=== PATIENT | male | born 1965 | race Caucasian/White ===

== ENCOUNTER → 2021-09-07 17:21 | Outpatient (CLI) | payer BC, SELFPAY ==
[2021-09-07 18:40] LABS: Alanine Aminotransferase 36 U/L (12-78); Albumin Level 3.5 g/dl (3.5-5.0); Albumin/Globulin Ratio 1.3 (1.1-1.8); Alkaline Phosphatase 62 U/L (38-126); Anion Gap 10.5 mEq/L (5-15); Aspartate Amino Transferase 25 U/L (17-59); Bilirubin,Total 0.3 mg/dl (0.2-1.3); Blood Urea Nitrogen 15 mg/dl (9-20); Calcium 8.8 mg/dl (8.4-10.2); Carbon Dioxide 28 mmol/L (22.0-30.0); Chloride 105 mmol/L (98-107); Chol/HDL Ratio 3.9 (1-3.5); Cholesterol 148 mg/dl (140-200); Estimated Glomerular Filt Rate 70 ml/min (>60); GFR (African American) 84 ML/MIN (>60); Globulin 2.7 g/dL (1.3-3.2); Glucose 138 mg/dl (74-100); HDL Cholesterol 38 mg/dl (40-60); Potassium 4.5 mmoL/L (3.5-5.1); Sodium 139 mmol/L (136-145); Total Protein,Serum 6.2 g/dl (6.3-8.2); Triglycerides 142 mg/dl (30-150); VLDL Cholesterol 28 mg/dL (0-40)
[2021-09-07 18:43] LABS: Hemoglobin A1C 8.4 % (4.0-6.0)
[2021-09-07 19:11] LABS: Prostate Specific Ag Screen 0.4 ng/ml (0.0-4.0)
== END ==
PROVIDERS: Visit Provider Internal Medicine
DX: E11.22 Type 2 diabetes mellitus with diabetic chronic kidney disease (principal); N18.2 Chronic kidney disease, stage 2 (mild); I12.9 Hypertensive chronic kidney disease with stage 1 through stage 4 chronic kidney disease, or unspecified chronic kidney disease; E78.5 Hyperlipidemia, unspecified; N40.1 Benign prostatic hyperplasia with lower urinary tract symptoms; Z12.5 Encounter for screening for malignant neoplasm of prostate
CPT/HCPCS: 80053; 80061; 83036; G0103

== ENCOUNTER → 2021-11-08 08:19 | Outpatient (CLI) | payer BC, SELFPAY | PROVIDERS: PCP Internal Medicine; Visit Provider Nurse Practitioner | DX: U07.1 COVID-19 (principal) | CPT/HCPCS: C9803; U0003; U0005 ==

== ENCOUNTER 2021-12-25 03:18 | Emergency (ER) | payer BC, SELFPAY ==
[2021-12-25 03:20] VITALS: BP 135/90; PULSE 70; RESP 17; TEMP 36.8; O2SAT 98; BMI 39.5
--- NOTE | 2021-12-25 04:02 | HMH.EDEYEP ---
ED Disposition Clinical Impression: Anisocoria Disposition: Home, Self-Care Condition on Discharge: Good Instructions: DI for Eye Pain Additional Instructions: call today to vision center Referrals: Everton Jones [Primary Care Provider] - - Critical Care Critical Care Time: No Attestation: On 12/25/21, the high probability of a clinically significant, sudden or life threatening deterioration of the following system(s) required my full and direct attention, intervention and personal management. The time I documented below is in addition to time spent performing reported procedures but includes the following listed in this critical care notation. Medical Decision Making - Medical Records Medical records reviewed: Yes: I reviewed the patient's medical records. - Adrian Inquiry Pt receiving controlled substance: No Vital Signs: 12/25/21 03:20 Temperature 98.3 F Temperature Source Oral Pulse Rate [Right] 70 Respiratory Rate 17 Blood Pressure [Right Arm] 135/90 Blood Pressure Mean [Right Arm] 105 02 Sat by Pulse Oximetry 98 Oxygen Delivery Method Room Air - Lab Data Lab results reviewed: Yes: I reviewed the patient's lab results. Lab Results 12/25/21 04:17: WBC 5.7, RBC 5.32, Hgb 15.9, Hct 48.6, MCV 91.4, MCH 29.8, MCHC 32.6, RDW 12.9, Plt Count 256, MPV 8.0, Neut % (Auto) 57.1, Lymph % (Auto) 31.0, Calhoun % (Auto) 6.6, Eos % (Auto) 2.9, Baso % (Auto) 2.4 H, Neut # (Auto) 3.2, Lymph # (Auto) 1.8, Calhoun # (Auto) 0.4, Eos # (Auto) 0.2, Baso # (Auto) 0.1, ESR 5 12/25/21 04:17: Sodium 136, Potassium 4.2, Chloride 99, Carbon Dioxide 28, Anion Gap 13.2, BUN 19, Creatinine 1.20, Estimated Creat Clear 111, Estimated GFR 63, Est GFR ( Amer) 76, Glucose 276 H, Calcium 9.8, Total Bilirubin 0.4, AST 30, ALT 40, Alkaline Phosphatase 76, C-Reactive Protein 1.5, Total Protein 7.4, Albumin 4.5, Globulin 2.9, Albumin/Globulin Ratio 1.6, Procalcitonin 0.079 Result diagrams: 12/25/21 04:17 12/25/21 04:17 - CT Data CT Scan: Head, Other (orbit) Time Received: 06:[address] Reviewed: Yes: I have viewed the radiologist's interpretation Preliminary Findings: Normal/NAD Medical Decision Narrative: dilated pupil w/o specific etiology with jens lugoxam- call pcp and [facility] Eye Problem HPI - General Chief complaint: Eye Problems Stated complaint: Health Seeking;Left Eye Time Seen by Provider: 12/25/21 03:50 Mode of Arrival: Family Vehicle Source of Information: Patient Limitations: Physical Limitations Description of Symptoms (Recalled from ER Triage Doc. by RN): Pt was at work ([employer]) and noticed in a mirror that his left pupil was huge and 2x the size of my other . Pupils round, reactive, and R 2mm/ L 3mm. Pt denies any injury, trauma, vision changes or pain. Denies eye tearing. Vision exam reveals: R 20/70 & L 20/30 with glassess in use. Pt reports I always have worse vision in my right eye . - History of Present Illness HPI Narrative: noted to have dilated lt pupil w/o fever or rash and no trauma or new meds or otc meds and no visual loss or eye pain or leger or trauma MD chief complaint: other Onset (ago): hour(s) Onset description: unknown Duration: constant Location: left eye Eye Symptoms: other (dilated ) Place: home Mechanism: none Severity: moderate Associated symptoms: none Treatments Prior to Arrival: none - Related Data Home Medications Medication Instructions Recorded Confirmed Fenofibric Acid (Choline) 135 mg PO DAILY 12/25/21 12/25/21 [Fenofibric Acid] Glimepiride [Amaryl] 4 mg PO DAILY 12/25/21 12/25/21 Metformin HCl [Metformin 1000mg 1,000 mg PO BID 12/25/21 12/25/21 Tablets] Semaglutide [Rybelsus] 14 mg PO DAILY 12/25/21 12/25/21 atenoloL [Atenolol 25mg Tab] 25 mg PO DAILY 12/25/21 12/25/21 lisinopriL [Lisinopril] 10 mg PO DAILY 12/25/21 12/25/21 Allergies Allergy/AdvReac Type Severity Reaction Status Date / Time PCN (PENICILLIN) Allergy Intermediate I-HIV
--- NOTE | 2021-12-25 04:04 | CT_ITS ---
PROCEDURE INFORMATION: Exam: CT Head Without Contrast Exam date and time: 12/25/2021 4:04 AM Age: 56 years old Clinical indication: Other: Anisorcoria, left pupil dilated, no trauma, no visual changes; Additional info: Anisocoria, no trauma or vision changes TECHNIQUE: Imaging protocol: Computed tomography of the head without contrast. Radiation optimization: All CT scans at this facility use at least one of these dose optimization techniques: automated exposure control; mA and/or kV adjustment per patient size (includes targeted exams where dose is matched to clinical indication); or iterative reconstruction. COMPARISON: No relevant prior studies available. FINDINGS: Brain: Normal. No hemorrhage. Unremarkable white matter. No mass effect. Cerebral ventricles: No ventriculomegaly. Paranasal sinuses: Visualized sinuses are unremarkable. No fluid levels. Mastoid air cells: Visualized mastoid air cells are well aerated. Bones/joints: Unremarkable. No acute fracture. Soft tissues: Unremarkable. IMPRESSION: No acute intracranial abnormality.
--- NOTE | 2021-12-25 04:19 | CT_ITS ---
PROCEDURE INFORMATION: Exam: CT Orbits Without Contrast Exam date and time: 12/25/2021 4:19 AM Age: 56 years old Clinical indication: Other: Anisorcoria, left pupil dilated, no trauma or visual changes; Additional info: L eye pupil change TECHNIQUE: Imaging protocol: Computed tomography images of the orbits without contrast. Radiation optimization: All CT scans at this facility use at least one of these dose optimization techniques: automated exposure control; mA and/or kV adjustment per patient size (includes targeted exams where dose is matched to clinical indication); or iterative reconstruction. COMPARISON: CT HEAD/BRAIN WO CON 12/25/2021 4:21 AM FINDINGS: Orbital cavity: Orbits are normal. Globes are unremarkable. No inflammatory process. No structural abnormality. Paranasal sinuses: Normal. No air-fluid levels. Bones/joints: No acute fracture. Soft tissues: No significant facial soft tissue swelling. IMPRESSION: Unremarkable examination orbits without contrast.
[2021-12-25 04:29] LABS: Basophils # 0.1 K/mm3 (0-0.2); Basophils % 2.4 % (0.1-2.0); Eosinophils # 0.2 K/mm3 (0.0-0.4); Eosinophils % 2.9 % (0.1-12.0); Hematocrit 48.6 % (42.0-52.0); Hemoglobin 15.9 g/dL (14.1-18.0); Lymphocytes # 1.8 K/mm3 (0.7-4.5); Mean Corpuscular HGB Conc 32.6 g/dL (31.8-35.4); Mean Corpuscular Hemoglobin 29.8 pg (27.0-31.2); Mean Corpuscular Volume 91.4 fl (80-94); Monocytes # 0.4 K/mm3 (0.1-1.0); Monocytes % 6.6 % (1.7-9.3); Neutrophils # 3.2 K/mm3 (1.8-7.8); Neutrophils % 57.1 % (37.0-80.0); Platelet Count 256 K/mm3 (142-424); Red Blood Count 5.32 M/mm3 (4.60-6.20); Red Cell Distribution Width 12.9 % (11.5-17.5); White Blood Count 5.7 K/mm3 (4.8-10.8)
[2021-12-25 04:36] LABS: Alanine Aminotransferase 40 U/L (12-78); Albumin Level 4.5 g/dl (3.5-5.0); Albumin/Globulin Ratio 1.6 (1.1-1.8); Alkaline Phosphatase 76 U/L (38-126); Anion Gap 13.2 mEq/L (5-15); Aspartate Amino Transferase 30 U/L (17-59); Bilirubin,Total 0.4 mg/dl (0.2-1.3); Blood Urea Nitrogen 19 mg/dl (9-20); Calcium 9.8 mg/dl (8.4-10.2); Carbon Dioxide 28 mmol/L (22.0-30.0); Chloride 99 mmol/L (98-107); Creatinine Clearance Estimated 111 mL/min (50-200); Estimated Glomerular Filt Rate 63 ml/min (>60); GFR (African American) 76 ML/MIN (>60); Globulin 2.9 g/dL (1.3-3.2); Glucose 276 mg/dl (74-100); Potassium 4.2 mmoL/L (3.5-5.1); Sodium 136 mmol/L (136-145); Total Protein,Serum 7.4 g/dl (6.3-8.2)
[2021-12-25 04:41] LABS: C-Reactive Protein 1.5 mg/L (0-4)
[2021-12-25 04:55] LABS: Procalcitonin 0.079 ng/mL (0.0-2.0)
[2021-12-25 05:08] LABS: Erythrocyte Sedimentation Rate 5 mm/hr (0-20)
[2021-12-25 06:01] VITALS: BP 140/84; PULSE 80; RESP 18; TEMP 36.8; O2SAT 97
== END 2021-12-25 06:10 | disposition home or self-care (01) ==
PROVIDERS: Emergency Provider Emergency Medicine; PCP Internal Medicine
DX: H57.02 Anisocoria (principal)
CPT/HCPCS: 70450; 70480; 80053; 84145; 85025; 85651; 86140; 99282

== ENCOUNTER → 2022-01-05 09:51 | Outpatient (CLI) | payer BC, SELFPAY ==
--- NOTE | 2022-01-05 09:55 | CA_ITS ---
FINAL REPORT TECHNIQUE: Color Doppler, duplex Doppler and ward scale sonography of the bilateral neck arterial vasculature was performed. Velocities were measured in the carotid arteries. Stenosis evaluation based on the validated velocity criteria. CLINICAL HISTORY: TIA,LT ANISOCORIA FINDINGS: The peak systolic velocity of the right common carotid artery is 128 cm/s. The peak systolic velocity of the right internal carotid artery is 108 cm/s and end diastolic velocity 23 cm/s. The ICA/CCA ratio is 1.03. A small amount of plaque is present. The right external carotid artery is patent. The right vertebral artery is patent with antegrade flow. The peak systolic velocity of the left common carotid artery is 92 cm/s. The peak systolic velocity of the left internal carotid artery is 98 cm/s and end diastolic velocity 22 cm/s. The ICA/CCA ratio is 1.10. A small amount of plaque is present. The left external carotid artery is patent.The left vertebral artery is patent with antegrade flow. IMPRESSION: Less than 50% bilateral carotid stenoses. Bilateral patent vertebral arteries with antegrade flow. If indicated, CTA or MRA could further evaluate. Reviewed, Interpreted and Dictated by Josué Murphy III, MD Transcribed by Charity Hankins Authenticated by Josué Murphy III, MD on 01/05/2022 11:09:[address] [facility]
== END ==
PROVIDERS: PCP Internal Medicine; Visit Provider Internal Medicine
DX: G45.9 Transient cerebral ischemic attack, unspecified (principal); H57.02 Anisocoria
CPT/HCPCS: 93880

== ENCOUNTER → 2022-01-12 08:29 | Outpatient (CLI) | payer BC, SELFPAY | PROVIDERS: PCP Internal Medicine; Visit Provider Nurse Practitioner | DX: Z20.822 Contact with and (suspected) exposure to COVID-19 (principal) | CPT/HCPCS: C9803; U0003; U0005 ==

== ENCOUNTER → 2022-03-08 12:38 | Outpatient (CLI) | payer BC, SELFPAY ==
[2022-03-08 15:28] LABS: Alanine Aminotransferase 29 U/L (12-78); Albumin Level 4.2 g/dl (3.5-5.0); Albumin/Globulin Ratio 1.7 (1.1-1.8); Alkaline Phosphatase 49 U/L (38-126); Anion Gap 11.3 mEq/L (5-15); Aspartate Amino Transferase 24 U/L (17-59); Bilirubin,Total 0.6 mg/dl (0.2-1.3); Blood Urea Nitrogen 19 mg/dl (9-20); Calcium 9.3 mg/dl (8.4-10.2); Carbon Dioxide 31 mmol/L (22.0-30.0); Chloride 101 mmol/L (98-107); Chol/HDL Ratio 4.6 (1-3.5); Cholesterol 146 mg/dl (140-200); Estimated Glomerular Filt Rate 58 ml/min (>60); GFR (African American) 70 ML/MIN (>60); Globulin 2.5 g/dL (1.3-3.2); Glucose 103 mg/dl (74-100); HDL Cholesterol 32 mg/dl (40-60); Potassium 4.3 mmoL/L (3.5-5.1); Sodium 139 mmol/L (136-145); Total Protein,Serum 6.7 g/dl (6.3-8.2); Triglycerides 247 mg/dl (30-150); VLDL Cholesterol 49 mg/dL (0-40)
[2022-03-08 15:34] LABS: Creatinine,Urine Random 190 mg/dL (Not Estab.)
[2022-03-08 15:37] LABS: Microalbumin/Creatinine Ratio 8.3
[2022-03-08 15:39] LABS: Direct LDL Cholesterol 72.43 mg/dL (100-129)
[2022-03-08 16:03] LABS: Hemoglobin A1C 8.8 % (4.0-6.0)
== END ==
PROVIDERS: PCP Internal Medicine; Visit Provider Internal Medicine
DX: E11.22 Type 2 diabetes mellitus with diabetic chronic kidney disease (principal); N18.2 Chronic kidney disease, stage 2 (mild); E78.5 Hyperlipidemia, unspecified; I10 Essential (primary) hypertension; E66.01 Morbid (severe) obesity due to excess calories; Z79.84 Long term (current) use of oral hypoglycemic drugs
CPT/HCPCS: 80053; 80061; 82043; 82570; 83036

== ENCOUNTER → 2022-09-13 12:52 | Outpatient (CLI) | payer BC, SELFPAY ==
[2022-09-13 17:00] LABS: Basophils # 0.1 K/mm3 (0-0.2); Basophils % 2.1 % (0.1-2.0); Eosinophils # 0.2 K/mm3 (0.0-0.4); Eosinophils % 2.7 % (0.1-12.0); Hematocrit 47.6 % (42.0-52.0); Hemoglobin 15.4 g/dL (14.1-18.0); Lymphocytes # 1.3 K/mm3 (0.7-4.5); Lymphocytes % 23.7 % (10-50); Mean Corpuscular HGB Conc 32.4 g/dL (31.8-35.4); Mean Corpuscular Hemoglobin 29.7 pg (27.0-31.2); Mean Corpuscular Volume 91.7 fl (80-94); Mean Platelet Volume 8.8 fl (7.4-10.4); Monocytes # 0.4 K/mm3 (0.1-1.0); Monocytes % 7.5 % (1.7-9.3); Neutrophils # 3.5 K/mm3 (1.8-7.8); Platelet Count 271 K/mm3 (142-424); Red Blood Count 5.19 M/mm3 (4.60-6.20); Red Cell Distribution Width 12.6 % (11.5-17.5); White Blood Count 5.5 K/mm3 (4.8-10.8)
[2022-09-13 18:35] LABS: Alanine Aminotransferase 26 U/L (12-78); Albumin Level 4.1 g/dl (3.5-5.0); Albumin/Globulin Ratio 1.5 (1.1-1.8); Alkaline Phosphatase 90 U/L (38-126); Anion Gap 17.4 mEq/L (5-15); Aspartate Amino Transferase 22 U/L (17-59); Bilirubin,Total 0.3 mg/dl (0.2-1.3); Blood Urea Nitrogen 25 mg/dl (9-20); Calcium 9.1 mg/dl (8.4-10.2); Carbon Dioxide 28 mmol/L (22.0-30.0); Chloride 99 mmol/L (98-107); Chol/HDL Ratio 4.5 (1-3.5); Cholesterol 140 mg/dl (140-200); Estimated Glomerular Filt Rate 53 ml/min (>60); GFR (African American) 64 ML/MIN (>60); Globulin 2.7 g/dL (1.3-3.2); Glucose 204 mg/dl (74-100); HDL Cholesterol 31 mg/dl (40-60); Potassium 4.4 mmoL/L (3.5-5.1); Sodium 140 mmol/L (136-145); Total Protein,Serum 6.8 g/dl (6.3-8.2); Triglycerides 335 mg/dl (30-150); VLDL Cholesterol 67 mg/dL (0-40)
[2022-09-13 18:45] LABS: Direct LDL Cholesterol 61.24 mg/dL (100-129)
[2022-09-13 19:02] LABS: Prostate Specific Ag Screen 0.3 ng/ml (0.0-4.0)
[2022-09-13 20:02] LABS: Hemoglobin A1C 8.8 % (4.0-6.0)
== END ==
PROVIDERS: PCP Internal Medicine; Visit Provider Internal Medicine
DX: E11.22 Type 2 diabetes mellitus with diabetic chronic kidney disease (principal); N18.9 Chronic kidney disease, unspecified; I10 Essential (primary) hypertension; E78.5 Hyperlipidemia, unspecified; Z79.84 Long term (current) use of oral hypoglycemic drugs; Z12.5 Encounter for screening for malignant neoplasm of prostate
CPT/HCPCS: 80053; 80061; 83036; 85025; G0103

== ENCOUNTER → 2023-03-14 12:20 | Outpatient (CLI) | payer BC, SELFPAY ==
[2023-03-14 16:01] LABS: Alanine Aminotransferase 28 U/L (12-78); Albumin Level 4.4 g/dl (3.5-5.0); Albumin/Globulin Ratio 1.6 (1.1-1.8); Alkaline Phosphatase 71 U/L (38-126); Anion Gap 14.3 mEq/L (5-15); Aspartate Amino Transferase 24 U/L (17-59); Bilirubin,Total 0.6 mg/dl (0.2-1.3); Blood Urea Nitrogen 20 mg/dl (9-20); Carbon Dioxide 28 mmol/L (22.0-30.0); Chloride 100 mmol/L (98-107); Chol/HDL Ratio 4.4 (1-3.5); Cholesterol 137 mg/dl (140-200); Estimated Glomerular Filt Rate 57 ml/min (>60); GFR (African American) 69 ML/MIN (>60); Globulin 2.8 g/dL (1.3-3.2); Glucose 153 mg/dl (74-100); HDL Cholesterol 31 mg/dl (40-60); Potassium 4.3 mmoL/L (3.5-5.1); Sodium 138 mmol/L (136-145); Total Protein,Serum 7.2 g/dl (6.3-8.2); Triglycerides 360 mg/dl (30-150); VLDL Cholesterol 72 mg/dL (0-40)
[2023-03-14 16:11] LABS: Direct LDL Cholesterol 60.25 mg/dL (100-129)
[2023-03-15 13:23] LABS: Hemoglobin A1C 8.9 % (4.0-6.0)
== END ==
PROVIDERS: PCP Internal Medicine; Visit Provider Internal Medicine
DX: E11.22 Type 2 diabetes mellitus with diabetic chronic kidney disease (principal); N18.2 Chronic kidney disease, stage 2 (mild); E78.5 Hyperlipidemia, unspecified; Z86.73 Personal history of transient ischemic attack (TIA), and cerebral infarction without residual deficits
CPT/HCPCS: 80053; 80061; 83036

== ENCOUNTER 2023-06-07 11:37 | Emergency (ER) | payer BC, SELFPAY ==
[2023-06-07 11:37] VITALS: BP 150/76; PULSE 76; RESP 18; TEMP 37.1; O2SAT 100; BMI 40.3
--- NOTE | 2023-06-07 11:57 | EXP.UTC ---
Discharge Plan Disposition Patient Disposition: Home, Self-Care Condition: Good Prescriptions Prescriptions: New azithromycin [Zithromax] 250 mg tablet 250 mg PO UD DOSE PK Qty: 6 0RF Rx Instructions: Take two (2) tablets today, then one (1) tablet days #2 thru #5 benzonatate [benzonatate] 100 mg capsule 100 mg PO TIDP PRN (Reason: Cough) Qty: 30 0RF methylprednisolone 4 mg Tablets,Dose Pack 4 mg PO DIRECTED Qty: 21 0RF No Action atenolol 25 MG tablet 25 mg PO DAILY metformin 1,000 MG tablet 1,000 mg PO BID lisinopril 10 MG tablet 10 mg PO DAILY glimepiride 4 MG tablet 4 mg PO DAILY fenofibric acid (choline) 135 MG capsule,delayed release(DR/EC) 135 mg PO DAILY semaglutide 14 MG tablet 14 mg PO DAILY Referrals Follow up/Referrals: Everton Jones MD [Primary Care Provider] - See instructions Activity Restrictions/Add. Instructions Additional Instructions/Restrictions: Drink plenty of fluids. Take tylenol or ibuprofen for pain or fever. Take the medications as directed. Follow up with your regular doctor. GO TO THE ER FOR ANY WORSENING SYMPTOMS Clinical Impressions Clinical Impression: Sinusitis, Acute viral syndrome Instructions Patient Instructions: Sinusitis, DI for Sinusitis, Coronavirus Disease 2019, Preventing the Spread of Coronavirus Discharge Instructions Discharge ED Provider: Rasta Parker [facility] General Stated complaint: Covid test, congestion, drainage Time Seen by Provider: 06/07/23 11:51 History of Present Illness Provider Complaint: He reports that for the past 3 days he has had sinus congestion, chills, body aches and malaise. He was exposed to covid-19 last week. Related Data Home Medications Medication Instructions Recorded Confirmed atenolol 25 mg tablet 25 mg PO DAILY cardiac 12/25/21 12/25/21 fenofibric acid (choline) 135 mg 135 mg PO DAILY . 12/25/21 12/25/21 capsule,delayed release glimepiride 4 mg tablet 4 mg PO DAILY Diabetes 12/25/21 12/25/21 lisinopril 10 mg tablet 10 mg PO DAILY htn 12/25/21 12/25/21 metformin 1,000 mg tablet 1,000 mg PO BID Diabetes 12/25/21 12/25/21 semaglutide 14 mg tablet 14 mg PO DAILY Diabetes 12/25/21 12/25/21 Previous Rx's Medication Instructions Recorded azithromycin 250 mg tablet 250 mg PO UD DOSE PK #6 tabs 06/07/23 (Zithromax) benzonatate 100 mg capsule 100 mg PO TIDP PRN Cough #30 caps 06/07/23 methylprednisolone 4 mg tablets in 4 mg PO DIRECTED #21 tabs 06/07/23 a dose pack Allergies Allergy/AdvReac Type Severity Reaction Status Date / Time PCN (PENICILLIN) Allergy Intermediate I-HIVES Uncoded 11/06/17 14:23 [facility] Disclaimer: The information contained in this section may have been updated after the patient was seen, as this information can be updated by other users. Social History Smoking Status: Former smoker alcohol intake: never current occupational status: retired Travel in the last 8 weeks: None ROS Obtained: Yes All systems reviewed & no additional complaints except as documented Constitutional Constitutional: Reports poor appetite Eyes Eyes: Reports system reviewed and no additional complaints, except as documented ENT Ears, Nose, Mouth, and Throat: Reports as per HPI Cardiovascular Cardiovascular: Reports system reviewed and no additional complaints, except as documented and Denies chest pain Respiratory Respiratory: Denies shortness of breath, Reports chest congestion, Reports cough, Denies stridor and Denies wheezing Gastrointestinal Gastrointestingal: Reports system reviewed and no additional complaints, except as documented; Denies abdominal pain, diarrhea or vomiting Musculoskeletal Musculoskeletal: Reports system reviewed and no additional complaints, except as documented and Denies arthralgias Integumentary/Breasts Skin/Breast: Reports system reviewed
[2023-06-07 12:45] VITALS: BP 150/76; PULSE 76; RESP 18; TEMP 37.1; O2SAT 100
== END 2023-06-07 12:46 | disposition home or self-care (01) ==
PROVIDERS: Emergency Provider Nurse Practitioner Family; PCP Internal Medicine
DX: U07.1 COVID-19 (principal); Z87.891 Personal history of nicotine dependence; R53.81 Other malaise
CPT/HCPCS: 99204; 99212; G0463

== ENCOUNTER → 2023-09-19 13:21 | Outpatient (CLI) | payer BC, SELFPAY ==
[2023-09-19 14:56] LABS: Basophils # 0.1 K/mm3 (0-0.2); Eosinophils # 0.1 K/mm3 (0.0-0.4); Eosinophils % 2.6 % (0.1-12.0); Hematocrit 52.8 % (42.0-52.0); Lymphocytes # 1.5 K/mm3 (0.7-4.5); Lymphocytes % 28.6 % (10-50); Mean Corpuscular HGB Conc 34.4 g/dL (31.8-35.4); Mean Corpuscular Hemoglobin 31.5 pg (27.0-31.2); Mean Corpuscular Volume 91.8 fl (80-94); Mean Platelet Volume 8.5 fl (7.4-10.4); Monocytes # 0.4 K/mm3 (0.1-1.0); Monocytes % 8.4 % (1.7-9.3); Neutrophils % 58.4 % (37.0-80.0); Platelet Count 241 K/mm3 (142-424); Red Blood Count 5.75 M/mm3 (4.60-6.20); Red Cell Distribution Width 12.8 % (11.5-17.5); White Blood Count 5.1 K/mm3 (4.8-10.8)
[2023-09-19 15:55] LABS: Alanine Aminotransferase 36 U/L (12-78); Albumin Level 4.6 g/dl (3.5-5.0); Albumin/Globulin Ratio 1.5 (1.1-1.8); Alkaline Phosphatase 62 U/L (38-126); Anion Gap 17.3 mEq/L (5-15); Aspartate Amino Transferase 28 U/L (17-59); Bilirubin,Total 0.5 mg/dl (0.2-1.3); Blood Urea Nitrogen 25 mg/dl (9-20); Calcium 9.5 mg/dl (8.4-10.2); Carbon Dioxide 25 mmol/L (22.0-30.0); Chloride 101 mmol/L (98-107); Chol/HDL Ratio 5.4 (1-3.5); Cholesterol 163 mg/dl (140-200); Estimated Glomerular Filt Rate 52 ml/min (>60); GFR (African American) 63 ML/MIN (>60); Glucose 135 mg/dl (74-100); HDL Cholesterol 30 mg/dl (40-60); Potassium 4.3 mmoL/L (3.5-5.1); Sodium 139 mmol/L (136-145); Total Protein,Serum 7.6 g/dl (6.3-8.2); Triglycerides 297 mg/dl (30-150); VLDL Cholesterol 59 mg/dL (0-40)
[2023-09-19 16:06] LABS: Direct LDL Cholesterol 87.11 mg/dL (100-129)
[2023-09-19 16:24] LABS: Prostate Specific Ag Screen 0.4 ng/ml (0.0-4.0)
[2023-09-19 16:57] LABS: Hemoglobin A1C 7.8 % (4.0-6.0)
[2023-09-19 18:21] LABS: Creatinine,Urine Random 84 mg/dL (Not Estab.); Microalbumin < 6.000 mg/L (0-16.7)
== END ==
PROVIDERS: PCP Internal Medicine; Visit Provider Internal Medicine
DX: E11.22 Type 2 diabetes mellitus with diabetic chronic kidney disease (principal); E78.5 Hyperlipidemia, unspecified; I10 Essential (primary) hypertension; N18.2 Chronic kidney disease, stage 2 (mild); E66.01 Morbid (severe) obesity due to excess calories; Z12.5 Encounter for screening for malignant neoplasm of prostate
CPT/HCPCS: 80053; 80061; 82043; 82570; 83036; 85025; G0103

== ENCOUNTER 2024-03-26 16:53 | Outpatient (CLI) | payer BC, SELFPAY ==
[2024-03-26 21:35] LABS: Chloride 103 mmol/L (98-107)
[2024-03-26 21:36] LABS: Potassium 4.4 mmoL/L (3.5-5.1); Sodium 138 mmol/L (136-145)
[2024-03-26 21:38] LABS: Alanine Aminotransferase 32 U/L (12-78); Alkaline Phosphatase 102 U/L (38-126); Anion Gap 15.4 mEq/L (5-15); Aspartate Amino Transferase 28 U/L (17-59); Bilirubin,Total 0.6 mg/dl (0.2-1.3); Blood Urea Nitrogen 25 mg/dl (9-20); Carbon Dioxide 24 mmol/L (22.0-30.0); Cholesterol 172 mg/dl (140-200); Estimated Glomerular Filt Rate 63 ml/min (>60); GFR (African American) 76 ML/MIN (>60)
[2024-03-26 21:39] LABS: Albumin Level 4.2 g/dl (3.5-5.0); Albumin/Globulin Ratio 1.5 (1.1-1.8); Calcium 9.6 mg/dl (8.4-10.2); Chol/HDL Ratio 5.4 (1-3.5); Globulin 2.8 g/dL (1.3-3.2); Glucose 146 mg/dl (74-100); HDL Cholesterol 32 mg/dl (40-60); Triglycerides 450 mg/dl (30-150)
[2024-03-26 21:50] LABS: Direct LDL Cholesterol 74.76 mg/dL (100-129)
[2024-03-26 22:35] LABS: Hemoglobin A1C 8.2 % (4.0-6.0)
== END 2024-03-26 23:59 | disposition home or self-care (01) ==
PROVIDERS: PCP Internal Medicine; Visit Provider Internal Medicine
DX: E11.22 Type 2 diabetes mellitus with diabetic chronic kidney disease (principal); N18.2 Chronic kidney disease, stage 2 (mild); E78.5 Hyperlipidemia, unspecified; Z87.891 Personal history of nicotine dependence; I12.9 Hypertensive chronic kidney disease with stage 1 through stage 4 chronic kidney disease, or unspecified chronic kidney disease
CPT/HCPCS: 80053; 80061; 83036

== ENCOUNTER 2024-06-25 09:15 | Outpatient (CLI) | payer BC, SELFPAY ==
[2024-06-25 17:46] LABS: Hemoglobin A1C 7.8 % (4.0-6.0)
[2024-06-25 19:01] LABS: Chol/HDL Ratio 4.8 (1-3.5); Cholesterol 164 mg/dl (140-200); HDL Cholesterol 34 mg/dl (40-60); Triglycerides 267 mg/dl (30-150); VLDL Cholesterol 53 mg/dL (0-40)
[2024-06-25 19:12] LABS: Direct LDL Cholesterol 80.09 mg/dL (100-129)
== END 2024-06-25 23:59 | disposition home or self-care (01) ==
LOC: LAB.DROPOF 06-26 09:15
PROVIDERS: PCP Internal Medicine; Visit Provider Internal Medicine
DX: E78.5 Hyperlipidemia, unspecified (principal); E11.9 Type 2 diabetes mellitus without complications; Z79.84 Long term (current) use of oral hypoglycemic drugs; Z79.85 Long-term (current) use of injectable non-insulin antidiabetic drugs
CPT/HCPCS: 80061; 83036

== ENCOUNTER 2024-09-24 14:43 | Outpatient (CLI) | payer BC, SELFPAY ==
[2024-09-24 14:39] LABS: Basophils # 0.1 K/mm3 (0-0.2); Basophils % 2.5 % (0.1-2.0); Eosinophils # 0.1 K/mm3 (0.0-0.4); Eosinophils % 1.8 % (0.1-12.0); Hematocrit 53.5 % (42.0-52.0); Lymphocytes % 22.2 % (10-50); Mean Corpuscular HGB Conc 33.6 g/dL (31.8-35.4); Mean Corpuscular Hemoglobin 29.6 pg (27.0-31.2); Mean Platelet Volume 8.3 fl (7.4-10.4); Monocytes # 0.3 K/mm3 (0.1-1.0); Monocytes % 7.7 % (1.7-9.3); Neutrophils # 2.8 K/mm3 (1.8-7.8); Neutrophils % 65.9 % (37.0-80.0); Platelet Count 226 K/mm3 (142-424); Red Blood Count 6.07 M/mm3 (4.60-6.20); White Blood Count 4.3 K/mm3 (4.8-10.8)
[2024-09-24 15:01] LABS: Alanine Aminotransferase 33 U/L (12-78); Albumin Level 4.7 g/dl (3.5-5.0); Albumin/Globulin Ratio 1.8 (1.1-1.8); Alkaline Phosphatase 59 U/L (38-126); Anion Gap 13.5 mEq/L (5-15); Aspartate Amino Transferase 30 U/L (17-59); Bilirubin,Total 0.7 mg/dl (0.2-1.3); Blood Urea Nitrogen 17 mg/dl (9-20); Calcium 9.4 mg/dl (8.4-10.2); Carbon Dioxide 26 mmol/L (22.0-30.0); Chloride 102 mmol/L (98-107); Chol/HDL Ratio 4.9 (1-3.5); Cholesterol 172 mg/dl (140-200); Estimated Glomerular Filt Rate 62 ml/min (>60); GFR (African American) 76 ML/MIN (>60); Globulin 2.6 g/dL (1.3-3.2); Glucose 114 mg/dl (74-100); HDL Cholesterol 35 mg/dl (40-60); Potassium 4.5 mmoL/L (3.5-5.1); Sodium 137 mmol/L (136-145); Total Protein,Serum 7.3 g/dl (6.3-8.2); Triglycerides 255 mg/dl (30-150); VLDL Cholesterol 51 mg/dL (0-40)
[2024-09-24 15:12] LABS: Direct LDL Cholesterol 99.01 mg/dL (100-129)
[2024-09-24 15:26] LABS: Hemoglobin A1C 7.6 % (4.0-6.0)
[2024-09-24 15:34] LABS: Prostate Specific Ag Screen 0.5 ng/ml (0.0-4.0)
[2024-09-24 17:09] LABS: Creatinine,Urine Random 87 mg/dL (Not Estab.)
[2024-09-24 17:22] LABS: Microalbumin < 6.000 mg/L (0-16.7)
== END 2024-09-24 23:59 | disposition home or self-care (01) ==
LOC: LAB.DROPOF 14:43
PROVIDERS: PCP Internal Medicine; Visit Provider Internal Medicine
DX: I10 Essential (primary) hypertension (principal); E11.59 Type 2 diabetes mellitus with other circulatory complications; E78.5 Hyperlipidemia, unspecified; Z12.5 Encounter for screening for malignant neoplasm of prostate; I77.9 Disorder of arteries and arterioles, unspecified; E66.01 Morbid (severe) obesity due to excess calories; K21.9 Gastro-esophageal reflux disease without esophagitis; Z68.38 Body mass index [BMI] 38.0-38.9, adult
CPT/HCPCS: 80053; 80061; 82043; 82570; 83036; 85025; G0103

== ENCOUNTER 2024-10-31 13:52 | Emergency (ER) | payer BC, SELFPAY ==
[2024-10-31 14:51] VITALS: BP 154/93; PULSE 74; RESP 18; TEMP 36.9; O2SAT 98; BMI 17.9
--- NOTE | 2024-10-31 14:52 | ED_ITS ---
Discharge Plan Disposition Patient Disposition: Home, Self-Care Condition: Good Prescriptions Prescriptions: New cephalexin 500 mg capsule 500 mg PO QID 7 Days Qty: 28 0RF No Action aspirin 81 mg tablet,delayed release (DR/EC) 81 mg PO DAILY icosapent ethyl [Vascepa] 1 gram capsule 2 g PO BID Qty: 360 1RF atenolol 25 mg tablet See Rx Instructions .ROUTE .COMPLEX Qty: 90 1RF Dose Instruction: TAKE ONE TABLET BY MOUTH EVERY DAY Rx Instructions: TAKE ONE TABLET BY MOUTH EVERY DAY fenofibric acid (choline) 135 mg capsule,delayed release(DR/EC) See Rx Instructions .ROUTE .COMPLEX Qty: 90 1RF Dose Instruction: TAKE 1 CAPSULE ONCE DAILY Rx Instructions: TAKE 1 CAPSULE ONCE DAILY clopidogrel 75 mg tablet See Rx Instructions .ROUTE .COMPLEX Qty: 90 1RF Dose Instruction: TAKE 1 TABLET DAILY Rx Instructions: TAKE 1 TABLET DAILY glimepiride 4 mg tablet See Rx Instructions .ROUTE .COMPLEX Qty: 180 1RF Dose Instruction: TAKE ONE TABLET BY MOUTH TWICE A DAY Rx Instructions: TAKE ONE TABLET BY MOUTH TWICE A DAY losartan 100 mg tablet See Rx Instructions .ROUTE .COMPLEX Qty: 90 1RF Dose Instruction: TAKE ONE TABLET BY MOUTH EVERY DAY Rx Instructions: TAKE ONE TABLET BY MOUTH EVERY DAY metformin 500 mg tablet See Rx Instructions .ROUTE .COMPLEX Qty: 360 1RF Dose Instruction: TAKE TWO TABLETS BY MOUTH TWICE A DAY WITH FOOD Rx Instructions: TAKE TWO TABLETS BY MOUTH TWICE A DAY WITH FOOD (DME) lancets [Accu-Chek Softclix Lancets] Misc See Rx Instructions .ROUTE .COMPLEX Qty: 100 5RF Dose Instruction: USE TO TEST BLOOD SUGAR ONCE DAILY DIRECTED Rx Instructions: USE TO TEST BLOOD SUGAR ONCE DAILY DIRECTED (DME) Accu-Chek Suzanne Plus test strp Strip See Rx Instructions .ROUTE .COMPLEX Qty: 100 2RF Dose Instruction: USE TO CHECK FASTING BLOOD GLUCOSE EVERY MORNING BEFORE BREAKFAST Rx Instructions: USE TO CHECK FASTING BLOOD GLUCOSE EVERY MORNING BEFORE BREAKFAST (DME) lancets [Accu-Chek Softclix Lancets] Misc See Rx Instructions .Route Qty: 200 1RF Rx Instructions: As directed. check sugar daily semaglutide 14 mg tablet 14 mg PO DAILY Qty: 90 1RF dapagliflozin propanediol 10 mg tablet See Rx Instructions .ROUTE .COMPLEX Qty: 90 1RF Dose Instruction: TAKE ONE TABLET BY MOUTH EVERY DAY Rx Instructions: TAKE ONE TABLET BY MOUTH EVERY DAY Referrals Follow up/Referrals: Everton Jones MD [Primary Care Provider] - See instructions Activity Restrictions/Add. Instructions Additional Instructions/Restrictions: Keep the wound clean and dry. Watch the wound for signs of infection, such as redness, swelling, drainage, fever. etc. Take tylenol or ibuprofen for pain. Follow up with your regular doctor. GO TO THE ER FOR ANY WORSENING SYMPTOMS OR CONCERNS. Clinical Impressions Clinical Impression: Laceration of right index finger, Need for Tdap vaccination Instructions Patient Instructions: DI for Laceration Repair-Skin Glue Print Language Print Language: Occitan Discharge ED Provider: Rasta Parker [facility] General Stated complaint: AO-1200 hours, laceration to R index Mode of Arrival: Ambulatory Source of Information: Patient Time Seen by Provider: 10/31/24 14:52 Description of Symptoms (Recalled from Triage Doc. by RN): CUT ON FINGER HEENT Symptoms (Recalled from RN notes): No Resp Symptoms (Recalled from RN notes): No Skin Symptoms (Recalled from RN notes): Yes MS Symptoms (Recalled from RN notes): No Functional Status (Recalled from RN notes): WNL Related Data Home Medications ?Medication ?Instructions ?Recorded ?Confirmed aspirin 81 mg tablet,delayed 81 mg PO DAILY 06/25/24 09/24/24 release Previous Rx's ?Medication ?Instructions ?Recorded atenolol 25 mg tablet See Rx Instructions .Route 06/24/24 .COMPLEX #90 tabs fenofibric acid (choline) 135 mg See Rx Instructions .Route 06/25/24 capsule,delayed release .COMPLEX #90 caps icosapent ethyl 1 gram capsule 2 g (2 x 1 gram) PO BID #360 caps 06/25/24 (Vascepa) clopidogrel 75 mg tablet See Rx Instructions .Route 07/10/24 .COMPLEX #90 tabs glimepiride 4 mg tablet See Rx Instructions .Route 07/16/24 .COMPLEX #180 tabs losartan 100 mg tablet See Rx Instructions .Route 07/25/24 .COMPLEX #90 tabs metformin 500 mg tablet See Rx Instructions .Route 08/01/24 .COMPLEX #360 tabs blood sugar diagnostic (Accu-Chek #100 strips 09/05/24 Suzanne Plus test strips) lancets (Accu-Chek Softclix #100 ea 09/05/24 Lancets) lancets (Accu-Chek Softclix #200 ea 09/05/24 Lancets) semaglutide 14 mg tablet 14 mg PO DAILY Diabetes #90 tabs 10/29/24 dapagliflozin propanediol 10 mg See Rx Instructions .Route 10/30/24 tablet .COMPLEX #90 tabs cephalexin 500 mg capsule 500 mg PO QID 7 days #28 caps 10/31/24 Allergies Allergy/AdvReac Type Severity Reaction Status Date / Time PCN (PENICILLIN) AdvReac Intermediate I-HIVES Uncoded 09/24/24 10:18 Worker's Comp Is this a Worker's Comp case?: No [facility] Disclaimer: The information contained in this section may have been updated after the patient was seen, as this information can be updated by other users. Social History Smoking Status: Former smoker alcohol intake: never current occupational status: retired Travel in the last 8 weeks: None Have you lived/traveled outside [place] in past 30 days?: No Contact w/someone who lives/traveled outside [place] past 30 days?: No Exposure to someone with infectious disease in past 14 days?: No Do you have a fever (greater than 100.4 F or 38 C)?: No Have you tested positive for COVID-19: No Exposed to someone with COVID-19 in past 14 days?: No Do you have a sore throat?: No Do you have a cough?: No Do you have any weakness?: No Do you have any diarrhea?: No Are you experiencing any unusual bleeding?: No Do you have any muscle aches/pain?: No Do you have any abdominal pain?: No Are you experiencing loss of taste or smell?: No ROS Obtained: Yes All systems reviewed & no additional complaints except as documented Constitutional Constitutional: Denies chills and Denies fever(s) Eyes Eyes: Denies eye discharge ENT Ears, Nose, Mouth, and Throat: Denies dizziness, Denies otalgia and Denies sore throat Cardiovascular Cardiovascular: Denies chest pain Respiratory Respiratory: Denies shortness of breath, Denies chest congestion, Denies cough, Denies stridor and Denies wheezing Gastrointestinal Gastrointestingal: Denies nausea or vomiting Musculoskeletal Musculoskeletal: Reports system reviewed and no additional complaints, except as documented and Denies arthralgias Integumentary/Breasts Skin/Breast: Reports as per HPI Neurologic Neurologic: Denies dizziness and Denies paresthesias Allergic/Immunologic Allergic/Immunologic: Denies wheezing Physical Exam General General appearance: alert and in no apparent distress Head Head exam: atraumatic, normocephalic and normal inspection Eye Eye exam: Present normal appearance, PERRL and EOMI ENT ENT exam: Present normal exam, normal oropharynx, mucous membranes moist, TM's normal bilaterally and normal external ear exam Neck Neck exam: Present normal inspection, full ROM and trachea midline; Absent meningismus or lymphadenopathy Chest Chest inspection: Present normal inspection and symmetric chest wall rise; Absent tenderness Respiratory Respiratory exam: Present normal lung sounds bilaterally; Absent respiratory distress Cardiovascular Cardiovascular exam: Present regular rate and normal rhythm; Absent JVD Abdominal Exam Abdominal exam: Present soft and normal bowel sounds; Absent distention, tenderness or guarding Extremities Exam Extremities exam: Present normal inspection, full ROM and normal capillary refill; Absent calf tenderness Back Exam Back exam: Present normal inspection; Absent tenderness Neurological Exam Neurological exam: Present alert and oriented X3 Psychiatric Psychiatric exam: Present normal affect and normal mood Skin Skin exam: Present other (there is a 1 cm linear laceration near the tip of his right index finger. no deep tissue or tendon damage. He has good 2 point touch discrimination distal to the wound. ) Lymphatic Lymphatic Findings: no adenopathy Medical Decision Making Medical Records Medical records reviewed: No I reviewed the patient's medical records. Screening: Per USPSTF and CDC recommendations, given the prevalence of disease in our region, it is our hospital?s policy to screen for HIV and viral Hepatitis for all patients aged 18 and over and those with ongoing risk factors. Adrian Inquiry Pt receiving controlled substance: No Vital Signs: 10/31/24 14:51 Temperature 98.4 F Temperature Source Oral Pulse Rate [Left Radial] 74 Respiratory Rate 18 Blood Pressure [Left Arm] 154/93 H Blood Pressure Mean [Left Arm] 113 02 Sat by Pulse Oximetry 98 Procedures Risk/Benefits of Procedure(s) Were Explained: Yes Laceration Laceration 1: Site: finger Side (If applicable): right Size (cm): 1 Description: linear Depth: simple, single layer Amount of anesthesia used (mL): 0 Pre-repair: wound explored, irrigated extensively and deep structures intact Skin layer closed with: Dermabond (he tolerated this well, good closure was obtained, the edges were approximated well. )
[2024-10-31] MEDS: TET/DIPHTH/PERT-ADULT 0.5ML SYRINGE 0.5 ML IM (15:11)
[2024-10-31 15:50] VITALS: BP 154/93; PULSE 74; RESP 18; TEMP 36.9
== END 2024-10-31 15:54 | disposition home or self-care (01) ==
PROVIDERS: Emergency Provider Nurse Practitioner Family; PCP Internal Medicine
DX: S61.210A Laceration without foreign body of right index finger without damage to nail, initial encounter (principal); M79.644 Pain in right finger(s); W45.8XXA Other foreign body or object entering through skin, initial encounter; Y93.9 Activity, unspecified; Z23 Encounter for immunization
CPT/HCPCS: 12001; G0168; 90471; 90715; 99212; G0381

== ENCOUNTER 2025-03-24 10:05 | Outpatient (CLI) | payer BC, SELFPAY ==
[2025-03-24 17:26] LABS: Basophils # 0.1 K/mm3 (0-0.2); Basophils % 2.2 % (0.1-2.0); Eosinophils # 0.1 Kmm3 (0.0-0.4); Eosinophils % 2.5 % (0.1-12.0); Hematocrit 57.9 % (42.0-52.0); Immature Granulocytes # 0.01 10^3uL; Immature Granulocytes % 0.2 %; Lymphocytes # 1.5 K/mm3 (0.7-4.5); Lymphocytes % 27.4 % (10-50); Mean Corpuscular HGB Conc 32.1 g/dL (31.8-35.4); Mean Corpuscular Volume 90.2 fl (80-94); Mean Platelet Volume 10.4 fl (7.4-10.4); Monocytes # 0.5 K/mm3 (0.1-1.0); Monocytes % 9.7 % (1.7-9.3); Neutrophils # 3.2 K/mm3 (1.8-7.8); Nucleated Red Blood Cells # 0 10^3/uL; Nucleated Red Blood Cells % 0 %; Platelet Count 294 K/mm3 (142-424); Red Blood Count 6.42 M/mm3 (4.60-6.20); Red Cell Distribution Width 13.3 % (11.5-17.5); Red Cell Distribution Width-SD 43.4 fL; White Blood Count 5.5 K/mm3 (4.8-10.8)
[2025-03-24 17:37] LABS: Creatinine,Urine Random 97 mg/dL (Not Estab.)
[2025-03-24 17:38] LABS: Microalbumin/Creatinine Ratio 8.5
[2025-03-24 18:29] LABS: Alanine Aminotransferase 28 U/L (12-78); Albumin Level 4.9 g/dl (3.5-5.0); Albumin/Globulin Ratio 1.8 (1.1-1.8); Alkaline Phosphatase 76 U/L (38-126); Anion Gap 13.6 mEq/L (5-15); Aspartate Amino Transferase 27 U/L (17-59); Bilirubin,Total 0.8 mg/dl (0.2-1.3); Blood Urea Nitrogen 26 mg/dl (9-20); Calcium 9.9 mg/dl (8.4-10.2); Carbon Dioxide 27 mmol/L (22.0-30.0); Chloride 102 mmol/L (98-107); Chol/HDL Ratio 5.3 (1-3.5); Cholesterol 171 mg/dl (140-200); Estimated Glomerular Filt Rate 52 ml/min (>60); GFR (African American) 63 ML/MIN (>60); Globulin 2.7 g/dL (1.3-3.2); Glucose 133 mg/dl (74-100); HDL Cholesterol 32 mg/dl (40-60); Potassium 4.6 mmoL/L (3.5-5.1); Sodium 138 mmol/L (136-145); Total Protein,Serum 7.6 g/dl (6.3-8.2); Triglycerides 283 mg/dl (30-150); VLDL Cholesterol 57 mg/dL (0-40)
[2025-03-24 18:40] LABS: Direct LDL Cholesterol 97.99 mg/dL (100-129)
[2025-03-24 19:02] LABS: Thyroid Stimulating Hormone 2.63 uIU/mL (0.465-4.68)
[2025-03-24 19:47] LABS: Hemoglobin 18.9 g/dL (14.1-18.0)
[2025-03-24 22:27] LABS: Hemoglobin A1C 7.3 % (4.0-6.0)
== END 2025-03-24 23:59 | disposition home or self-care (01) ==
LOC: LAB.DROPOF 03-25 12:17
PROVIDERS: PCP Internal Medicine; Visit Provider Internal Medicine
DX: E78.5 Hyperlipidemia, unspecified (principal); E11.59 Type 2 diabetes mellitus with other circulatory complications; I10 Essential (primary) hypertension; I48.91 Unspecified atrial fibrillation; I48.92 Unspecified atrial flutter
CPT/HCPCS: 80053; 80061; 82043; 82570; 83036; 84443; 85025

== ENCOUNTER 2025-04-01 14:53 | Outpatient (CLI) | payer BC, SELFPAY | END 2025-04-01 23:59 | disposition home or self-care (01) | LOC: RT 14:53 | PROVIDERS: PCP Internal Medicine; Visit Provider Nurse Practitioner | DX: I48.91 Unspecified atrial fibrillation (principal); I48.92 Unspecified atrial flutter; I49.1 Atrial premature depolarization; I49.3 Ventricular premature depolarization; I47.10 Supraventricular tachycardia, unspecified; I47.20 Ventricular tachycardia, unspecified | CPT/HCPCS: 93270 ==

== ENCOUNTER 2025-04-21 10:01 | Outpatient (CLI) | payer BC, SELFPAY ==
--- NOTE | 2025-04-21 | CA_ITS ---
APPROVED REPORT Exam: Pharmacologic Technologist: Raina Juarez Ht: 5 ft 6 in Wt: 243 lbs BSA: 2.17 m2 HR: 133 bpm BP: 110/87 mmHg Stress Test Details Test: Lexiscan HR Resting HR: 133 bpm Max Heart Rate (APMHR): 163 bpm Max HR Achieved: 133 bpm Target HR (85% APMHR): 139 bpm % of APMHR: 82 Recovery HR: 132 bpm BP Resting BP: 110.0/87.0 mmHg Max BP: 129.0/86.0 mmHg Recovery BP: 129.0/86.0 mmHg ECG Resting ECG: Atrial flutter Stress ECG Conclusion Symptoms: Dyspnea Arrhythmias/Ectopy: Atrial flutter ST-T Changes: Less than [address] depression. Conclusion: EKG unremarkable due to Lexiscan infusion. Patient advised to go to cardiology office due to fast heart rate. Electronically signed by : Ariana Horton MD 04/21/2025 23:42:13
--- NOTE | 2025-04-21 10:15 | CA_ITS ---
APPROVED REPORT EXAM: Comprehensive 2D, Doppler, and color-flow Echocardiogram Temporary Office Assistant: HI Nava, RVS Ht: 5 ft 6 in Wt: 243lbs BSA: 2.17 HR: 133 bpm BP: 135/96 mmHg Rhythm: Atrial Fibrillation Indications: AFIB, Palpitations, SOA, HTN, HLD, DM 2D Dimensions Left Atrium 3.49 cm M: 3.0 - 4.0 LA Volume 61.50 mL LA Volume Index 28.34 mL/m2 (M/F) 16-34 M-Mode Dimensions RVDd 2.68 cm (0.9-2.6) LA Diam 4.34 cm (1.9-4.0) LVDd 4.69 cm (3.5-5.7) LVDs 3.76 cm (3.5-5.7) IVSd 1.22 cm (0.6-1.1) PWd 0.97 cm (0.6-1.1) EF (Teich) 40.70% FS 19.80% EDV (Teich) 101.90 mL TAPSE 1.22 (<1.7) ESV (Teich) 60.40 mL LV Diastology E Decel Time 97 (160-240 msec) E/A Ratio 0.35 MED A' 7.70 cm/s LAT A' 11.90 cm/s Aortic Valve NANDO Index 1.06 cm2/m2 AoV Peak Jarad. 75.0 (50-130 cm/s) AO Peak GR. 2.20 mmHg AO Mean GR. 1.10 (<5 mmHg) AO VTI 11.8 (18-25 cm) NANDO (VTI) 2.37 (2.5-4.5 cm2) Mitral Valve MV A Velocity 66.0 (40-130 cm/s) E/A Ratio 0.35 Left Ventricle The left ventricle is normal size. The left ventricular systolic function is low normal. There is increased LV wall thickness. There is borderline global hypokinesis present. Diastolic function is indeterminate. LVEF is 50%. Right Ventricle The right ventricle is normal size. The right ventricular systolic function is normal. Atria Left atrium is mildly dilated. Right atrium is mildly dilated. There is no Doppler evidence of interatrial shunt. Aortic Valve The aortic valve opens well. There is no aortic valvular stenosis. No aortic regurgitation is present. Mitral Valve The mitral valve is normal in structure. No evidence of mitral valve stenosis. Trace mitral regurgitation. Tricuspid Valve Tricuspid valve is grossly normal in structure and function. Trace tricuspid regurgitation. There is insufficient TR jet to estimate RVSP. Pulmonic Valve The pulmonary valve is normal in structure. Trace pulmonic regurgitation. Great Vessels The aortic root is normal in size. IVC is normal in size and collapses >50% with inspiration. Pericardium There is no pericardial effusion. Other Information Study Quality: Fair Conclusion Low-normal LV systolic function (LVEF 50%). No significant valvular stenosis or regurgitation. Electronically signed by : Ariana Horton MD 04/22/2025 12:30:05
--- NOTE | 2025-04-21 11:30 | NM_ITS ---
APPROVED REPORT Exam: Nuclear Stress Test Indication: sob Patient Location: Outpatient Stress Tech: Raina Juarez [place] Tech:Jennifer GlassBEN, RT (R)(N) Ht: 5 ft 7 in Wt: 240 lbs HR: 134 bpm BP: 110/87 mmHg BSA: 2.19 m2 TID: 1.17 BMI: 37.5 History: soa Procedure: Patient received 0.4 mg of intravenous Lexiscan, resting heart rate 134 bpm, resting blood pressure 110/87 mmHg, with Lexiscan maximum heart rate achieved was 134 bpm which is 85 % of the maximum predicted heart rate and blood pressure was 129/86 mmHg. With Lexiscan, patient denied any complaint of chest pain. Cardiac Stress and Resting SPECT Images: Cardiac Stress and Resting SPECT images were obtained using technetium 99m Myoview 29.7 mCi stress and 10.55 mCi at rest. Resting and stress imaging in supine and prone positions demonstrate a large sized, moderate, predominantly fixed perfusion defect in the inferior and inferior lateral LV mckee. There is a small region of reversibility towards the distal inferior LV wall. Gated imaging demonstrates moderate reduction global LV systolic function. LVEF is calculated at 37%. Conclusion: Large sized, moderate, predominantly fixed perfusion defect in the inferior and inferior lateral LV mckee. There is a small region of reversibility towards the distal inferior LV wall. Findings are suggestive of partial reversible ischemia. Gated imaging demonstrates moderate reduction global LV systolic function. LVEF is calculated at 37%. Electronically signed by : Ariana Horton MD 04/21/2025 23:38:13
[2025-04-21] MEDS: REGADENOSON 0.4MG/5ML SYRINGE 0.4 MG IV (13:42)
[2025-04-21] MEDS: SODIUM CHLORIDE 0.9% 10ML SYR (RAD ONLY) 10 ML IV ×2 (13:42)
[2025-04-21] MEDS: ISOTOPE MYOVIEW (PER STUDY) 1 DOSE IV (13:42)
== END 2025-04-21 23:59 | disposition home or self-care (01) ==
LOC: RT 10:03
PROVIDERS: PCP Internal Medicine; Visit Provider Nurse Practitioner
DX: I48.92 Unspecified atrial flutter (principal); I48.91 Unspecified atrial fibrillation; G47.33 Obstructive sleep apnea (adult) (pediatric); E78.5 Hyperlipidemia, unspecified; E11.9 Type 2 diabetes mellitus without complications; I10 Essential (primary) hypertension; R94.39 Abnormal result of other cardiovascular function study
CPT/HCPCS: 78452; 93017; 93018; 93306; A9502; J2785

== ENCOUNTER 2025-04-24 11:47 | Observation (INO) | payer BC, SELFPAY ==
[2025-04-24] VITALS (23 sets, daily range): BP systolic 99–143; BP diastolic 56–102; PULSE 62–131; RESP 17–20; TEMP 36.6; O2SAT 89–99; BMI 38.5; BMI 37.3
--- NOTE | 2025-04-24 07:19 | IR_ITS ---
APPROVED REPORT Patient Location: Outpatient PROCEDURES Left heart catheterization Left ventriculogram Selective coronary angiogram Attempted direct-current cardioversion INDICATION Abnormal Myoview, Systolic congestive heart failure ejection fraction 37%, Atrial fibrillation, Informed consent was obtained prior to the procedure. COMPLICATIONS none Estimated Blood Loss: less than 10ml TECHNIQUE One percent lidocaine used to anesthetize the right anterior aspect of the wrist. The right radial artery was accessed via the Seldinger technique. A 6 Irish sheath was placed in the right radial artery. 2.5 mg of Verapamil, 800 mcg of nitroglycerin, 1mg Lidocaine and 5000 U Heparin were given through the arterial sheath. The JL3 catheter was also used to perform left heart catheterization, left ventriculogram and selective coronary angiogram. At the end of the diagnostic cardiac catheterization propofol was given for additional conscious sedation and patient underwent 6 direct-current cardioversion attempts at 200 synchronized joules which failed to convert patient into sinus rhythm. Patient did tolerate the procedure from a hemodynamic standpoint. At the end the procedure he was transferred to the postop putting in stable condition with plans to proceed with admission ANGIOGRAPHIC RESULTS The left main artery Normal The left anterior descending artery Normal with mid vessel 10% luminal regularities The circumflex artery Nondominant with mid vessel 10 to 20% luminal regularities The right coronary artery Dominant 10% luminal regularities The DANGELO ventriculogram reveals Dilated ventricle with ejection fraction estimated at 25% The left ventricular end-diastolic pressure 20 mmHg IMPRESSION Nonischemic mild luminal regularities LV dysfunction with reduced ejection fraction 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 Patient remains tachycardic with a heart rate of 140 bpm and remains in atrial fibrillation. I would like to start amiodarone IV today and admit patient for rate control. The ejection fraction is severely reduced and in the setting of tachycardia he should be admitted for rate control 2. If patient is easy to rate control with oral amiodarone he should be discharged over the weekend once rate control is achieved. If he remains in atrial fibrillation with rapid ventricular response I would like to bring him back to the [facility] on Sunday and reattempt cardioversion 3. Risk factor modification 4. Recommend sleep study if this has not already been obtained. Patient is mildly polycythemic. 5. Recommend renal ultrasound because of polycythemia looking for solid tumors 6. Consider cardiac MRI 7. Standard therapy for LV dysfunction Electronically signed by : Alfred Sepulveda MD 04/24/2025 11:32:54
[2025-04-24 09:32] LABS: Basophils # 0.1 K/mm3 (0-0.2); Eosinophils # 0.1 Kmm3 (0.0-0.4); Hematocrit 54.1 % (42.0-52.0); Hemoglobin 17.8 g/dL (14.1-18.0); Immature Granulocytes # 0.01 10^3uL; Immature Granulocytes % 0.2 %; Lymphocytes # 1.2 K/mm3 (0.7-4.5); Lymphocytes % 24.5 % (10-50); Mean Corpuscular HGB Conc 32.9 g/dL (31.8-35.4); Mean Corpuscular Hemoglobin 29.4 pg (27.0-31.2); Mean Corpuscular Volume 89.3 fl (80-94); Monocytes # 0.6 K/mm3 (0.1-1.0); Monocytes % 11.6 % (1.7-9.3); Neutrophils % 59.7 % (37.0-80.0); Nucleated Red Blood Cells # 0 10^3/uL; Nucleated Red Blood Cells % 0 %; Platelet Count 239 K/mm3 (142-424); Red Blood Count 6.06 M/mm3 (4.60-6.20); Red Cell Distribution Width 12.8 % (11.5-17.5); Red Cell Distribution Width-SD 41.8 fL
[2025-04-24 09:42] LABS: Chloride 102 mmol/L (98-107); Sodium 137 mmol/L (136-145)
[2025-04-24 09:44] LABS: Blood Urea Nitrogen 23 mg/dl (9-20); Creatinine Clearance Estimated 96 mL/min (50-200); Estimated Glomerular Filt Rate 57 ml/min (>60); GFR (African American) 69 ML/MIN (>60)
[2025-04-24 09:45] LABS: Calcium 9.2 mg/dl (8.4-10.2); Carbon Dioxide 30 mmol/L (22.0-30.0); Glucose 116 mg/dl (74-100)
[2025-04-24] MEDS: HEPARIN 1,000 UNITS/500ML NS (CATH LAB) 3000 UNIT IV (10:50)
[2025-04-24] MEDS: VERAPAMIL 2.5MG/ML 2ML VIAL 2.5 MG IV (10:51)
[2025-04-24] MEDS: HEPARIN 1,000 UNITS/ML 10ML VIAL (CATH LAB) 5000 UNIT IV (10:51)
[2025-04-24] MEDS: 0.9 % SODIUM CHLORIDE 500 ML 25 ML IV (10:51)
[2025-04-24] MEDS: NITROGLYCERIN 800MCG/8ML SYR (CATH LAB) 800 MCG IA (10:51)
[2025-04-24] MEDS: LIDOCAINE 1% 10ML MDV 10 ML IJ (10:51)
[2025-04-24] MEDS: diphenhydrAMINE 50MG/ML VIAL 50 MG IV (10:51)
[2025-04-24] MEDS: FENTANYL 100MCG/2ML VIAL 50 MCG IV (11:22)
[2025-04-24] MEDS: MIDAZOLAM HCL 1MG/ML 5ML VIAL 1 MG IV (11:22)
[2025-04-24] MEDS: PROPOFOL 10MG/ML 20ML VIAL 70 MG IV (11:22)
[2025-04-24] MEDS: IOPAMIDOL-370 (76%);100ML BOTTLE 60 ML IV (11:41)
[2025-04-24] MEDS: AMIODARONE HCL 150 MG in DEXTROSE 5 % IN WATER 100 ML 618 MG IV (12:34)
[2025-04-24] MEDS: AMIODARONE HCL 900 MG in DEXTROSE 5 % IN WATER 500 ML 34.53 MG IV (12:49)
--- NOTE | 2025-04-24 13:13 | EXP.HP ---
History of Present Illness *Admission Date: 04/24/25 *Reason for visit:: A-fib RVR *History of present illness: Andreia Wood is a 59-year-old male with medical history significant for A-fib, CAD, carotid artery stenosis, untreated PASTOR, type 2 diabetes, hypertension who presented for an outpatient LHC and cardioversion after an abnormal stress test yesterday. Dr. Sepulveda performed LHC with no occlusive CAD. No stents received. However, patient was in A-fib RVR and underwent cardioversion which was unfortunately unsuccessful. Therefore, I discussed case with Dr. Sepulveda who recommended admission for management of A-fib RVR with amiodarone and accepted. CBC, CMP unremarkable. On room air. [facility] Disclaimer: The information contained in this section may have been updated after the patient was seen, as this information can be updated by other users. Medical History Other persistent atrial fibrillation SOB (shortness of breath) PASTOR (obstructive sleep apnea) Family History (Updated 04/24/25 @ 12:42 by Comfort Cortes RN) Other No significant family history Social History (Updated 04/24/25 @ 12:42 by Comfort Cortes RN) Smoking Status: Never smoker alcohol intake: current alcohol intake frequency: holidays/special occasions only current occupational status: retired Travel in the last 8 weeks?: None Have you lived/traveled outside US in past 30 days?: No Contact w/someone who lives/traveled outside US past 30 days?: No Exposure to someone with infectious disease in past 14 days?: No Do you have a fever (greater than 100.4 F or 38 C)?: No Have you tested positive for COVID-19?: No Exposed to someone with COVID-19 in past 14 days?: No Do you have a sore throat?: No Do you have a cough?: No Do you have any weakness?: No Do you have any diarrhea?: No Are you experiencing any unusual bleeding?: No Do you have any muscle aches/pain?: No Do you have any abdominal pain?: No Are you experiencing loss of taste or smell?: No Other Medical History Have you received the Flu Vaccine for this season: Yes Have you received the Pneumonia Vaccine: Yes Meds Home Medications and Allergies Home Medications ?Medication ?Instructions ?Recorded ?Confirmed ?Type apixaban 5 mg tablet (Eliquis) 5 mg PO BID 04/01/25 04/24/25 History metoprolol succinate 100 mg 100 mg PO DAILY #30 tabs 04/01/25 04/24/25 Rx tablet,extended release 24 hr clopidogrel 75 mg tablet 75 mg PO DAILY 04/24/25 04/24/25 History dapagliflozin propanediol 10 mg 10 mg PO DAILY 04/24/25 04/24/25 History tablet fenofibric acid (choline) 135 mg 135 mg PO DAILY 04/24/25 04/24/25 History capsule,delayed release glimepiride 4 mg tablet 4 mg PO BID 04/24/25 04/24/25 History losartan 100 mg tablet 100 mg PO DAILY 04/24/25 04/24/25 History metformin 500 mg tablet 1,000 mg PO BIDWMEAL 04/24/25 04/24/25 History semaglutide 14 mg tablet (Rybelsus) 14 mg PO DAILY Diabetes 04/24/25 04/24/25 History New Prescriptions to Start Prescriptions: Allergies Allergy/AdvReac Type Severity Reaction Status Date / Time Penicillins Allergy Severe Hives Verified 04/24/25 09:06 Exam Data for Last 24 hours Vital signs and Labs for Last 24 Hours: Temp Pulse Resp BP Pulse Ox O2 Del Method O2 Flow Rate 97.9 F 122 H 18 109/77 L 99 Room Air 2 04/24/25 12:00 04/24/25 12:54 04/24/25 12:45 04/24/25 12:45 04/24/25 12:54 04/24/25 13:00 04/24/25 12:00 Laboratory Results - last 24 hr 04/24/25 09:25: WBC 5.0, RBC 6.06, Hgb 17.8, Hct 54.1 H, MCV 89.3, MCH 29.4, MCHC 32.9, RDW 12.8, Plt Count 239, MPV 10.0, Neut % (Auto) 59.7, Lymph % (Auto) 24.5, King % (Auto) 11.6 H, Eos % (Auto) 2.0, Baso % (Auto) 2.0, Neut # (Auto) 3.0, Lymph # (Auto) 1.2, King # (Auto) 0.6, Eos # (Auto) 0.1, Baso # (Auto) 0.1, Sodium 137, Potassium 4.0, Chloride 102, Carbon Dioxide 30, Anion Gap 9.0, BUN 23 H, Creatinine 1.30 H, Estimated Creat Clear 96, Estimated GFR 57 L, Est GFR ( Amer) 69, Glucose 116 H, Calcium 9.2 I & O for Last 24 hours: Intake & Output 04/21/25 04/22/25 04/23/25 04/24/25 23:59 23:59 23:59 23:59 Weight 108.153 kg Constitutional Constitutional: no acute distress and obese *Routine HEENT Exam Head: Present normocephalic Eye: Present EOMI and PERRL ENT: Present mucous membranes moist *Routine Neck Exam Neck: Present supple; Absent lymphadenopathy *Routine Respiratory Exam Respiratory: Present CTA bilaterally *Routine Cardiovascular Exam Cardiovascular: Present tachycardia and irregularly irregular *Routine Abdominal Exam Abdominal: Present soft and normoactive bowel sounds; Absent tenderness *Routine Rectal Exam Rectal:: deferred *Routine Genitalia Exam Genitalia:: deferred *Routine Extremities Exam Extremities: Absent cyanosis, clubbing or edema *Routine Skin Exam Skin: Present warm; Absent rash *Routine Neurological Exam Neurological: Present alert and oriented X3 Assessment and Plan *Assessment and plan (1) Atrial flutter with rapid ventricular response: Status: Acute Category: Medical Code(s): I48.92 - Unspecified atrial flutter Plan Andreia Wood is a 59-year-old male with medical history significant for A-fib, CAD, carotid artery stenosis, untreated PASTOR, type 2 diabetes, hypertension who presented for an outpatient LHC and cardioversion after an abnormal stress test yesterday. Dr. Sepulveda performed LHC with no occlusive CAD. No stents received. However, patient was in A-fib RVR and underwent cardioversion which was unfortunately unsuccessful. Therefore, I discussed case with Dr. Sepulveda who recommended admission for management of A-fib RVR with amiodarone and accepted. CBC, CMP unremarkable. On room air. #A-fib RVR #PASTOR untreated ? Presented for outpatient LHC and cardioversion. LHC unremarkable for occlusive CAD, HR in the 120s to 140s in the [employer]. ? Started on IV amiodarone bolus and drip, has since converted to normal sinus rhythm with heart rate in the 70s now. Will continue to drip until tomorrow and switch to p.o. amiodarone. ? Continue home metoprolol succinate 100 mg, Eliquis 5 mg twice daily. ? Patient will need further evaluation of PASTOR, will refer to pulmonology on discharge. Likely contributing to A-fib. ? Dr. Sepulveda also recommended eventual referral to. ? ECHO on 04/21/2025 revealed LVEF 50% with no valvular abnormalities. #CAD #ALFREDO #Hypertension ? Continue home clopidogrel, losartan. #Type 2 diabetes ? Continue home metformin, Farxiga 10 mg ? LDSSI, ACHS glucose checks. #Obesity ? Complicates all aspects of care. Full code DVT prophylaxis: Eliquis as above.
[2025-04-24 16:50] LABS: POC Glucose,Bedside 185 (70-110)
--- NOTE | 2025-04-24 17:22 | ECG_ITS ---
APPROVED REPORT Exam: Resting ECG HR:65 bpm ECG Measurements Heart Rate 65 AXES NM 185 P -12 QRSd 93 QRS 139 QT 425 T -11 QTc 437 Conclusion SINUS RHYTHM PATTERN CONSISTENT WITH PULMONARY DISEASE POSSIBLE RIGHT VENTRICULAR HYPERTROPHY [SOME/ALL OF: PROMINENT R IN V1, LATE TRANSITION, RAD, ADRIANA, SSS] MINIMAL ST DEPRESSION [0.025+ mV ST DEPRESSION] ABNORMAL QRS-T ANGLE [QRS-T AXIS DIFFERENCE > 60] ABNORMAL ECG UNCONFIRMED REPORT Electronically signed by : Rasta Blake, 04/24/2025 23:03:49
--- NOTE | 2025-04-24 17:30 | PC.NURSE ---
Patient converted back to NSR at 1713. EKG completed and sent to MD. No new orders at this time.
--- NOTE | 2025-04-24 19:44 | PC.NURSE ---
pts glucose is 184. Pt does not want any insulin at this time. He usually takes metformin and glimperide.
[2025-04-24 19:51] LABS: POC Glucose,Bedside 184 (70-110)
[2025-04-24] MEDS: APIXABAN 5MG TABLET 5 MG PO (21:08)
[2025-04-25] VITALS (18 sets, daily range): BP systolic 95–122; BP diastolic 63–86; PULSE 57–78; RESP 12–21; TEMP 36.4–36.6; O2SAT 92–99; BMI 36.8
[2025-04-25 06:16] LABS: POC Glucose,Bedside 94 (70-110)
--- NOTE | 2025-04-25 06:54 | PC.NURSE ---
Pt unable to receive metformin for up to 48 hours post heart cath
[2025-04-25 07:41] LABS: Basophils # 0.1 K/mm3 (0-0.2); Basophils % 1.5 % (0.1-2.0); Eosinophils # 0.1 Kmm3 (0.0-0.4); Eosinophils % 1.3 % (0.1-12.0); Hematocrit 51.2 % (42.0-52.0); Hemoglobin 16.5 g/dL (14.1-18.0); Immature Granulocytes # 0.01 10^3uL; Immature Granulocytes % 0.2 %; Lymphocytes # 1.4 K/mm3 (0.7-4.5); Lymphocytes % 22.8 % (10-50); Mean Corpuscular HGB Conc 32.2 g/dL (31.8-35.4); Mean Corpuscular Hemoglobin 29.1 pg (27.0-31.2); Mean Corpuscular Volume 90.3 fl (80-94); Mean Platelet Volume 10.1 fl (7.4-10.4); Monocytes # 0.7 K/mm3 (0.1-1.0); Monocytes % 11.9 % (1.7-9.3); Neutrophils # 3.7 K/mm3 (1.8-7.8); Neutrophils % 62.3 % (37.0-80.0); Nucleated Red Blood Cells # 0 10^3/uL; Nucleated Red Blood Cells % 0 %; Platelet Count 218 K/mm3 (142-424); Red Blood Count 5.67 M/mm3 (4.60-6.20); Red Cell Distribution Width 13.1 % (11.5-17.5)
[2025-04-25 08:01] LABS: Chloride 104 mmol/L (98-107); Potassium 4.5 mmoL/L (3.5-5.1); Sodium 135 mmol/L (136-145)
[2025-04-25 08:04] LABS: Anion Gap 6.5 mEq/L (5-15); Blood Urea Nitrogen 19 mg/dl (9-20); Carbon Dioxide 29 mmol/L (22.0-30.0); Creatinine Clearance Estimated 95 mL/min (50-200); Estimated Glomerular Filt Rate 57 ml/min (>60); GFR (African American) 69 ML/MIN (>60)
[2025-04-25 08:05] LABS: Glucose 119 mg/dl (74-100)
[2025-04-25 08:28] LABS: Alanine Aminotransferase 31 U/L (12-78); Albumin Level 4.1 g/dl (3.5-5.0); Albumin/Globulin Ratio 1.6 (1.1-1.8); Alkaline Phosphatase 46 U/L (38-126); Anion Gap 9.6 mEq/L (5-15); Aspartate Amino Transferase 28 U/L (17-59); Bilirubin,Total 0.7 mg/dl (0.2-1.3); Blood Urea Nitrogen 19 mg/dl (9-20); Carbon Dioxide 28 mmol/L (22.0-30.0); Chloride 102 mmol/L (98-107); Creatinine Clearance Estimated 88 mL/min (50-200); Estimated Glomerular Filt Rate 52 ml/min (>60); GFR (African American) 63 ML/MIN (>60); Globulin 2.6 g/dL (1.3-3.2); Glucose 110 mg/dl (74-100); Magnesium 2.2 mg/dl (1.6-2.3); Potassium 4.6 mmoL/L (3.5-5.1); Sodium 135 mmol/L (136-145); Total Protein,Serum 6.7 g/dl (6.3-8.2)
[2025-04-25] MEDS: METOPROLOL SUCCINATE XL 100MG TABLET 100 MG PO (08:42)
[2025-04-25] MEDS: APIXABAN 5MG TABLET 5 MG PO (08:42)
[2025-04-25] MEDS: IRBESARTAN 150MG TAB 150 MG PO (08:42)
[2025-04-25] MEDS: DAPAGLIFLOZIN PROPANEDIOL 10 MG TABLET PO (08:42)
[2025-04-25] MEDS: CLOPIDOGREL 75MG TAB 75 MG PO (08:42)
--- NOTE | 2025-04-25 09:58 | EXP.DC.SUM ---
General Admission date:: 04/24/25 HPI HPI HPI: Andreia Wood is a 59-year-old male with medical history significant for A-fib, CAD, carotid artery stenosis, untreated PASTOR, type 2 diabetes, hypertension who presented for an outpatient LHC and cardioversion after an abnormal stress test yesterday. Dr. Sepulveda performed LHC with no occlusive CAD. No stents received. However, patient was in A-fib RVR and underwent cardioversion which was unfortunately unsuccessful. Therefore, I discussed case with Dr. Sepulveda who recommended admission for management of A-fib RVR with amiodarone and accepted. CBC, CMP unremarkable. On room air. Hospital Course Hospital Course Hospital Course: Andreia Wood is a 59-year-old male with medical history significant for A-fib, CAD, carotid artery stenosis, untreated PASTOR, type 2 diabetes, hypertension who presented for an outpatient LHC and cardioversion after an abnormal stress test yesterday. Dr. Sepulveda performed LHC with no occlusive CAD. No stents received. However, patient was in A-fib RVR and underwent cardioversion which was unfortunately unsuccessful. Therefore, I discussed case with Dr. Sepulveda who recommended admission for management of A-fib RVR with amiodarone and accepted. CBC, CMP unremarkable. On room air. #A-fib RVR #PASTOR untreated ? Presented for outpatient LHC and cardioversion. LHC unremarkable for occlusive CAD, HR in the 120s to 140s in the [employer]. ? Started on IV amiodarone bolus and drip, converted to normal sinus rhythm with heart rate in the 70s. ? Spoke with Dr. Sepulveda, will transition to oral amiodarone 400 mg twice daily for 2 weeks then will continue taper with outpatient cardiology. ? Continue home metoprolol succinate 100 mg, Eliquis 5 mg twice daily. ? Patient will need further evaluation of PASTOR, will refer to pulmonology on discharge. Likely contributing to A-fib. ? Dr. Sepulveda also recommended eventual referral to electrophysiology. ? ECHO on 04/21/2025 revealed LVEF 50% with no valvular abnormalities. #CAD #ALFREDO #Hypertension ? Continue home clopidogrel, losartan. #Type 2 diabetes ? Continue home metformin, Farxiga 10 mg ? LDSSI, ACHS glucose checks. #Obesity ? Complicates all aspects of care. Full code DVT prophylaxis: Eliquis as above. Total time spent on discharge: 35 minutes on chart review, counseling, documentation, and direct care with patient. Exam Data for Last 24 hours Vital signs and Labs for Last 24 Hours: Temp Pulse Resp BP Pulse Ox O2 Del Method O2 Flow Rate 97.5 F L 61 16 121/77 97 Room Air 2 04/25/25 09:00 04/25/25 09:00 04/25/25 09:00 04/25/25 09:00 04/25/25 09:00 04/25/25 09:00 04/24/25 12:00 Laboratory Results - last 24 hr 04/24/25 16:39: POC Glucose 185 H 04/24/25 19:41: POC Glucose 184 H 04/25/25 06:07: POC Glucose 94 04/25/25 07:30: WBC 6.0, RBC 5.67, Hgb 16.5, Hct 51.2, MCV 90.3, MCH 29.1, MCHC 32.2, RDW 13.1, Plt Count 218, MPV 10.1, Neut % (Auto) 62.3, Lymph % (Auto) 22.8, Yates % (Auto) 11.9 H, Eos % (Auto) 1.3, Baso % (Auto) 1.5, Neut # (Auto) 3.7, Lymph # (Auto) 1.4, Yates # (Auto) 0.7, Eos # (Auto) 0.1, Baso # (Auto) 0.1, Sodium 135 L 04/25/25 07:30: Sodium 135 L, Potassium 4.5 04/25/25 07:30: Potassium 4.6, Chloride 104 04/25/25 07:30: Chloride 102, Carbon Dioxide 29 04/25/25 07:30: Carbon Dioxide 28, Anion Gap 6.5 04/25/25 07:30: Anion Gap 9.6, BUN 19 04/25/25 07:30: BUN 19, Creatinine 1.30 H 04/25/25 07:30: Creatinine 1.40 H, Estimated Creat Clear 95 04/25/25 07:30: Estimated Creat Clear 88, Estimated GFR 57 L 04/25/25 07:30: Estimated GFR 52 L, Est GFR ( Amer) 69 04/25/25 07:30: Est GFR ( Amer) 63, Glucose 119 H 04/25/25 07:30: Glucose 110 H, Calcium 9.0 04/25/25 07:30: Calcium 9.0, Magnesium 2.2, Total Bilirubin 0.7, AST 28, ALT 31, Alkaline Phosphatase 46, Total Protein 6.7, Albumin 4.1, Globulin 2.6, Albumin/Globulin Ratio 1.6 I & O for Last 24 hours: Intake & Output 04/22/25 04/23/25 04/24/25 04/25/25 23:59 23:59 23:59 23:59 Intake Total 867.18 / 1170.18 792 / 792 Output Total 1800 / 2200 1600 / 1600 Balance -932.82 / -1029.82 -808 / -808 Weight 108.153 kg 106.594 kg Constitutional Constitutional: no acute distress and obese *Routine HEENT Exam Head: Present normocephalic Eye: Present EOMI and PERRL ENT: Present mucous membranes moist *Routine Neck Exam Neck: Present supple; Absent lymphadenopathy *Routine Respiratory Exam Respiratory: Present CTA bilaterally *Routine Cardiovascular Exam Cardiovascular: Present RRR *Routine Abdominal Exam Abdominal: Present soft and normoactive bowel sounds; Absent tenderness *Routine Extremities Exam Extremities: Absent cyanosis, clubbing or edema *Routine Skin Exam Skin: Present warm; Absent rash *Routine Neurological Exam Neurological: Present alert and oriented X3 Results Data Completed and Pending Labs on day of discharge: Labs from last 24 hours 04/25/25 04/25/25 04/25/25 07:30 07:30 07:30 WBC RBC Hgb Hct MCV MCH MCHC RDW Plt Count MPV Neut % (Auto) Lymph % (Auto) Yates % (Auto) Eos % (Auto) Baso % (Auto) Neut # (Auto) Lymph # (Auto) Yates # (Auto) Eos # (Auto) Baso # (Auto) Sodium Potassium Chloride Carbon Dioxide Anion Gap BUN Creatinine Estimated Creat Clear Estimated GFR Est GFR ( Amer) 63 Glucose 110 H 119 H POC Glucose Calcium 9.0 9.0 Magnesium 2.2 Total Bilirubin 0.7 AST 28 ALT 31 Alkaline Phosphatase 46 Total Protein 6.7 Albumin 4.1 Globulin 2.6 Albumin/Globulin Ratio 1.6 04/25/25 04/25/25 04/25/25 07:30 07:30 07:30 WBC RBC Hgb Hct MCV MCH MCHC RDW Plt Count MPV Neut % (Auto) Lymph % (Auto) Yates % (Auto) Eos % (Auto) Baso % (Auto) Neut # (Auto) Lymph # (Auto) Yates # (Auto) Eos # (Auto) Baso # (Auto) Sodium Potassium Chloride Carbon Dioxide Anion Gap BUN Creatinine 1.40 H Estimated Creat Clear 88 95 Estimated GFR 52 L 57 L Est GFR ( Amer) 69 Glucose POC Glucose Calcium Magnesium Total Bilirubin AST ALT Alkaline Phosphatase Total Protein Albumin Globulin Albumin/Globulin Ratio 04/25/25 04/25/25 04/25/25 07:30 07:30 07:30 WBC RBC Hgb Hct MCV MCH MCHC RDW Plt Count MPV Neut % (Auto) Lymph % (Auto) Yates % (Auto) Eos % (Auto) Baso % (Auto) Neut # (Auto) Lymph # (Auto) Yates # (Auto) Eos # (Auto) Baso # (Auto) Sodium Potassium Chloride Carbon Dioxide 28 Anion Gap 9.6 6.5 BUN 19 19 Creatinine 1.30 H Estimated Creat Clear Estimated GFR Est GFR ( Amer) Glucose POC Glucose Calcium Magnesium Total Bilirubin AST ALT Alkaline Phosphatase Total Protein Albumin Globulin Albumin/Globulin Ratio 04/25/25 04/25/25 04/25/25 07:30 07:30 07:30 WBC RBC Hgb Hct MCV MCH MCHC RDW Plt Count MPV Neut % (Auto) Lymph % (Auto) Yates % (Auto) Eos % (Auto) Baso % (Auto) Neut # (Auto) Lymph # (Auto) Yates # (Auto) Eos # (Auto) Baso # (Auto) Sodium 135 L Potassium 4.6 4.5 Chloride 102 104 Carbon Dioxide 29 Anion Gap BUN Creatinine Estimated Creat Clear Estimated GFR Est GFR ( Amer) Glucose POC Glucose Calcium Magnesium Total Bilirubin AST ALT Alkaline Phosphatase Total Protein Albumin Globulin Albumin/Globulin Ratio 04/25/25 04/25/25 04/24/25 07:30 06:07 19:41 WBC 6.0 RBC 5.67 Hgb 16.5 Hct 51.2 MCV 90.3 MCH 29.1 MCHC 32.2 RDW 13.1 Plt Count 218 MPV 10.1 Neut % (Auto) 62.3 Lymph % (Auto) 22.8 Yates % (Auto) 11.9 H Eos % (Auto) 1.3 Baso % (Auto) 1.5 Neut # (Auto) 3.7 Lymph # (Auto) 1.4 Yates # (Auto) 0.7 Eos # (Auto) 0.1 Baso # (Auto) 0.1 Sodium 135 L Potassium Chloride Carbon Dioxide Anion Gap BUN Creatinine Estimated Creat Clear Estimated GFR Est GFR ( Amer) Glucose POC Glucose 94 184 H Calcium Magnesium Total Bilirubin AST ALT Alkaline Phosphatase Total Protein Albumin Globulin Albumin/Globulin Ratio 04/24/25 16:39 WBC RBC Hgb Hct MCV MCH MCHC RDW Plt Count MPV Neut % (Auto) Lymph % (Auto) Yates % (Auto) Eos % (Auto) Baso % (Auto) Neut # (Auto) Lymph # (Auto) Yates # (Auto) Eos # (Auto) Baso # (Auto) Sodium Potassium Chloride Carbon Dioxide Anion Gap BUN Creatinine Estimated Creat Clear Estimated GFR Est GFR ( Amer) Glucose POC Glucose 185 H Calcium Magnesium Total Bilirubin AST ALT Alkaline Phosphatase Total Protein Albumin Globulin Albumin/Globulin Ratio DS: Diagnosis Discharge Diagnosis (1) Atrial flutter with rapid ventricular response: Status: Acute Code(s): I48.92 - Unspecified atrial flutter Meds Home Medications and Allergies Home Medications ?Medication ?Instructions ?Recorded ?Confirmed ?Type apixaban 5 mg tablet (Eliquis) 5 mg PO BID 04/01/25 05/04/25 History metoprolol succinate 100 mg 100 mg PO DAILY #30 tabs 04/01/25 05/04/25 Rx tablet,extended release 24 hr clopidogrel 75 mg tablet 75 mg PO DAILY 04/24/25 05/04/25 History dapagliflozin propanediol 10 mg 10 mg PO DAILY 04/24/25 05/04/25 History tablet fenofibric acid (choline) 135 mg 135 mg PO DAILY 04/24/25 05/04/25 History capsule,delayed release glimepiride 4 mg tablet 4 mg PO BID 04/24/25 05/04/25 History losartan 100 mg tablet 100 mg PO DAILY 04/24/25 05/04/25 History metformin 500 mg tablet 1,000 mg PO BIDWMEAL 04/24/25 05/04/25 History semaglutide 14 mg tablet (Rybelsus) 14 mg PO DAILY Diabetes 04/24/25 05/04/25 History amiodarone 200 mg tablet 400 mg (2 x 200 mg) PO DAILY #60 04/27/25 05/04/25 Rx tabs ondansetron 4 mg disintegrating 4 mg PO Q6H PRN nausea and 04/30/25 05/04/25 Rx tablet vomiting #10 tabs New Prescriptions to Start Prescriptions: Allergies Allergy/AdvReac Type Severity Reaction Status Date / Time Penicillins Allergy Severe Hives Verified 05/04/25 14:56 Discharge Plan Disposition Patient Disposition: Home, Self-Care Condition: Fair Follow up Plan Follow up with: Everton Jones MD [Primary Care Provider, Medical] - Enter time for follow up Referral Note: Call for appointment when office opens on Sunday. Alfred Sepulveda MD [Staff Physician, Cardiology] - 04/27/25 Prescriptions/Medication Reconciliation: Continued Eliquis 5 mg tablet 5 mg PO BID metoprolol succinate 100 mg tablet extended release 24 hr 100 mg PO DAILY Qty: 30 2RF metformin 500 mg tablet 1,000 mg PO BIDWMEAL clopidogrel 75 mg tablet 75 mg PO DAILY glimepiride 4 mg tablet 4 mg PO BID losartan 100 mg tablet 100 mg PO DAILY fenofibric acid (choline) 135 mg capsule,delayed release(DR/EC) 135 mg PO DAILY dapagliflozin propanediol 10 mg tablet 10 mg PO DAILY Rybelsus 14 mg tablet 14 mg PO DAILY Discontinued metoprolol succinate 25 mg tablet extended release 24 hr 25 mg PO DAILY Patient Comments: TAKE 1 TABLET BY MOUTH DAILY Rx Instructions: take with 100mg tablet for a total of 125mg No Action amiodarone 200 mg tablet 400 mg PO DAILY Qty: 60 3RF ondansetron 4 mg tablet,disintegrating 4 mg PO Q6H PRN (Reason: nausea and vomiting) Qty: 10 0RF Problem Reconciliation Problems Reviewed?: Yes Patient Discharge Instructions Patient Instructions: Cardioversion, DI for Atrial Flutter, DI for Cardiac Catheterization, DI for Cardioversion, DI for Surgical Site Infection, DI for Moderate Sedation Print Language: Micronesian Providers Primary Care Provider: Everton Jones Admit Provider: Alfred Sepulveda Attending Provider: Reza Marvin
[2025-04-25] MEDS: AMIODARONE 200MG TABLET 400 MG PO (10:25)
--- NOTE | 2025-04-25 11:26 | PC.NURSE ---
1020 PO Amiodarone admin. 1115 Amiodarone drip stopped
--- NOTE | 2025-04-25 11:52 | PC.NURSE ---
Dressing removed from cardiac cath site. [id number]
--- NOTE | 2025-04-27 10:23 | SW/DCPLANNER ---
Spoke with patient on the phone. Patient stated that he is doing fine. Patient stated that he made 2 of his follow up appointments for tomorrow. Patient stated that he was able to case picker his new medicine. Patient stated that he has no concerns or questions at this time. Malorie De Leon
== END 2025-04-25 11:45 | disposition home or self-care (01) ==
LOC: ICU 11:49
PROVIDERS: Admitting Provider Internal Medicine; PCP Internal Medicine; Visit Provider Student in an Organized Health Care Education/Training Program
PROC: 4A023N7 Measurement of Cardiac Sampling and Pressure, Left Heart, Percutaneous Approach (ICD-10-PCS; CPT 93452; principal; 2025-04-24 10:45)
PROC: 5A2204Z Restoration of Cardiac Rhythm, Single (ICD-10-PCS; 2025-04-24 10:45)
DX: I48.19 Other persistent atrial fibrillation (principal); I25.10 Atherosclerotic heart disease of native coronary artery without angina pectoris; I11.0 Hypertensive heart disease with heart failure; I50.20 Unspecified systolic (congestive) heart failure; I48.92 Unspecified atrial flutter; E11.9 Type 2 diabetes mellitus without complications; G47.33 Obstructive sleep apnea (adult) (pediatric); I65.29 Occlusion and stenosis of unspecified carotid artery; E66.9 Obesity, unspecified; Z68.36 Body mass index [BMI] 36.0-36.9, adult; E78.5 Hyperlipidemia, unspecified; Z79.85 Long-term (current) use of injectable non-insulin antidiabetic drugs; Z79.01 Long term (current) use of anticoagulants; Z79.84 Long term (current) use of oral hypoglycemic drugs; Z79.899 Other long term (current) drug therapy; Z88.0 Allergy status to penicillin; Z82.49 Family history of ischemic heart disease and other diseases of the circulatory system
CPT/HCPCS: 36415; 80048; 80053; 82962; 83735; 85025; 92960; 93005; 93458; 99152; C1725; C1769; G0378; J0282; J1200; J1644; J2704; J3010; J7040; J7060; Q9967

== ENCOUNTER 2025-04-30 05:19 | Emergency (ER) | payer BC, SELFPAY ==
[2025-04-30] VITALS (11 sets, daily range): BP systolic 100–130; BP diastolic 53–92; PULSE 93–118; RESP 14–24; TEMP 36.9–37.2; O2SAT 94–97; BMI 38.7
--- NOTE | 2025-04-30 05:24 | ECG_ITS ---
APPROVED REPORT Exam: Resting ECG HR:128 bpm ECG Measurements Heart Rate 128 AXES QRSd 95 QRS 170 QT 339 T -37 QTc 415 Conclusion ATRIAL FLUTTER/TACHYCARDIA WITH RAPID VENTRICULAR RESPONSE PATTERN CONSISTENT WITH PULMONARY DISEASE INCOMPLETE RIGHT BUNDLE BRANCH BLOCK [90+ ms QRS DURATION, TERMINAL R IN V1/V2, 40+ ms S IN I/aVL/V4/V5/V6] RIGHT VENTRICULAR HYPERTROPHY [SOME/ALL OF: PROMINENT R IN V1, LATE TRANSITION, RAD, ADRIANA, SSS] MODERATE ST DEPRESSION [0.05+ mV ST DEPRESSION] ABNORMAL ECG UNCONFIRMED REPORT Electronically signed by : COLT TABARES, 05/01/2025 06:50:45
--- NOTE | 2025-04-30 05:31 | [facility].EDGENADL ---
Discharge Plan Disposition Patient Disposition: Home, Self-Care Prescriptions Prescriptions: New ondansetron 4 mg tablet,disintegrating 4 mg PO Q6H PRN (Reason: nausea and vomiting) Qty: 10 0RF No Action Eliquis 5 mg tablet 5 mg PO BID metoprolol succinate 100 mg tablet extended release 24 hr 100 mg PO DAILY Qty: 30 2RF amiodarone 200 mg tablet 400 mg PO DAILY Qty: 60 3RF metformin 500 mg tablet 1,000 mg PO BIDWMEAL clopidogrel 75 mg tablet 75 mg PO DAILY glimepiride 4 mg tablet 4 mg PO BID losartan 100 mg tablet 100 mg PO DAILY fenofibric acid (choline) 135 mg capsule,delayed release(DR/EC) 135 mg PO DAILY dapagliflozin propanediol 10 mg tablet 10 mg PO DAILY Rybelsus 14 mg tablet 14 mg PO DAILY Referrals Follow up/Referrals: Everton Jones MD [Primary Care Provider, Medical] - See instructions Activity Restrictions/Add. Instructions Additional Instructions/Restrictions: As discussed, follow-up closely with cardiology regarding this visit to the emergency department. If you have chest pain, feel your heart is racing, have passing out or near passing out episodes, any changes from baseline that are concerning, return to the emergency department for further evaluation. Also continue following closely with your family physician to keep them in the loop. Also continue follow-up with sleep medicine in order to have sleep study done to rule out sleep apnea as the cause. Ondansetron was sent to the pharmacy (nausea medication). If you are feeling nauseated or vomiting, you can put 1 under your tongue for symptoms. Clinical Impressions Clinical Impression: Fever, Atrial fibrillation with RVR Print Language Print Language: Luxembourgish Discharge ED Provider: Arden Smith General Adult HPI <Dixon Prieto MD - Last Filed: 04/30/25 07:12> General Chief complaint: Fever Stated complaint: nausea, sweats, fever, sore throat, CARTAGENA, heart cath Time Seen by Provider: 04/30/25 05:20 Mode of Arrival: Family Vehicle Source of Information: Patient Description of Symptoms (Recalled from ER Triage Doc. by RN): Fever Pt presents to the ED with c/o fever, sore throat and nausea X 2 days. Pt reports having a heart cath X 6 days ago. History of Present Illness HPI narrative: 59-year-old female with history of A-fib with RVR with recent admission for cardioversion, GERD, obesity, hypertension, diabetes, presents for nausea and fever. He reports that he had a heart cath last week but did not get stents. He has a history of A-fib and required cardioversion inpatient. He does report having a lot of sore throat and cough over the last couple of days. Denies any chest pain, denies any abdominal pain, denies any urinary symptoms. Related Data Home Medications ?Medication ?Instructions ?Recorded ?Confirmed apixaban 5 mg tablet (Eliquis) 5 mg PO BID 04/01/25 04/27/25 clopidogrel 75 mg tablet 75 mg PO DAILY 04/24/25 04/27/25 dapagliflozin propanediol 10 mg 10 mg PO DAILY 04/24/25 04/27/25 tablet fenofibric acid (choline) 135 mg 135 mg PO DAILY 04/24/25 04/27/25 capsule,delayed release glimepiride 4 mg tablet 4 mg PO BID 04/24/25 04/27/25 losartan 100 mg tablet 100 mg PO DAILY 04/24/25 04/27/25 metformin 500 mg tablet 1,000 mg PO BIDWMEAL 04/24/25 04/27/25 semaglutide 14 mg tablet (Rybelsus) 14 mg PO DAILY Diabetes 04/24/25 04/27/25 Previous Rx's ?Medication ?Instructions ?Recorded metoprolol succinate 100 mg 100 mg PO DAILY #30 tabs 04/01/25 tablet,extended release 24 hr amiodarone 200 mg tablet 400 mg (2 x 200 mg) PO DAILY #60 04/27/25 tabs ondansetron 4 mg disintegrating 4 mg PO Q6H PRN nausea and 04/30/25 tablet vomiting #10 tabs Allergies Allergy/AdvReac Type Severity Reaction Status Date / Time Penicillins Allergy Severe Hives Verified 04/30/25 05:31 [facility] <Dixon Prieto MD - Last Filed: 04/30/25 07:12> [facility] Disclaimer: The information contained in this section may have been updated after the patient was seen, as this information can be updated by other users. Medical History Other persistent atrial fibrillation SOB (shortness of breath) PASTOR (obstructive sleep apnea) Family History Other No significant family history Social History Smoking Status: Never smoker alcohol intake: current alcohol intake frequency: holidays/special occasions only current occupational status: retired Travel in the last 8 weeks?: None Do you have a fever (greater than 100.4 F or 38 C)?: Yes Do you have a sore throat?: Yes Other Medical History Have you received the Flu Vaccine for this season: No Have you received the Pneumonia Vaccine: Yes <Dixon Prieto MD - Last Filed: 04/30/25 07:12> ROS Obtained: Yes All systems reviewed & no additional complaints except as documented Physical Exam <Dixon Prieto MD - Last Filed: 04/30/25 07:12> General General appearance: alert and in no apparent distress Head Head exam: atraumatic and normocephalic Eye Eye exam: Present normal appearance, PERRL and EOMI ENT ENT exam: Present normal oropharynx and normal external ear exam Neck Neck exam: Present normal inspection and full ROM Chest Chest inspection: Present normal inspection and symmetric chest wall rise; Absent tenderness Respiratory Respiratory exam: Present normal lung sounds bilaterally; Absent respiratory distress Cardiovascular Cardiovascular exam: Present tachycardia and irregular rhythm Abdominal Exam Abdominal exam: Present soft; Absent distention, tenderness or guarding Extremities Exam Extremities exam: Present normal inspection; Absent edema or joint swelling Back Exam Back exam: Present normal inspection; Absent tenderness Neurological Exam Neurological exam: Present alert and oriented X3; Absent motor sensory deficit Psychiatric Psychiatric exam: Present normal affect and normal mood Skin Skin exam: Present warm, dry and normal color Lymphatic Lymphatic Findings: no adenopathy Medical Decision Making <Dixon Prieto MD - Last Filed: 04/30/25 07:12> Medical Records Medical records reviewed: Yes I reviewed the patient's medical records. Screening: Per USPSTF and CDC recommendations, given the prevalence of disease in our region, it is our hospital?s policy to screen for HIV and viral Hepatitis for all patients aged 18 and over and those with ongoing risk factors. Adrian Inquiry Pt receiving controlled substance: No Adrian was queried for this patient: No Vital Signs: 04/30/25 05:27 04/30/25 05:37 04/30/25 05:52 Temperature 98.9 F Temperature Source Oral Pulse Rate 99 H 93 H Pulse Rate [Left] 115 H Respiratory Rate 14 24 17 Blood Pressure 122/84 130/83 Blood Pressure [Left Arm] 124/92 H Blood Pressure Mean Blood Pressure Mean [Left Arm] 102 Blood Pressure Source [Left Arm] Automatic Cuff Blood Pressure Position [Left Arm] Sitting 02 Sat by Pulse Oximetry 96 95 95 Oxygen Delivery Method Room Air 04/30/25 06:00 04/30/25 06:13 04/30/25 06:30 Temperature Temperature Source Pulse Rate 104 H 118 H 97 H Pulse Rate [Left] Respiratory Rate 22 24 17 Blood Pressure 127/78 101/69 L 101/64 L Blood Pressure [Left Arm] Blood Pressure Mean 79 69 Blood Pressure Mean [Left Arm] Blood Pressure Source [Left Arm] Blood Pressure Position [Left Arm] 02 Sat by Pulse Oximetry 96 95 97 Oxygen Delivery Method 04/30/25 07:01 04/30/25 07:30 04/30/25 08:00 Temperature Temperature Source Pulse Rate 95 H 118 H 118 H Pulse Rate [Left] Respiratory Rate 17 17 17 Blood Pressure 104/53 L 100/74 L 107/79 L Blood Pressure [Left Arm] Blood Pressure Mean 77 85 Blood Pressure Mean [Left Arm] Blood Pressure Source [Left Arm] Blood Pressure Position [Left Arm] 02 Sat by Pulse Oximetry 94 L 96 96 Oxygen Delivery Method Lab Data Lab results reviewed: Yes I reviewed the patient's lab results. Lab Results 04/30/25 05:26: WBC 4.5 L, RBC 6.56 H, Hgb 19.1 H, Hct 57.5 H, MCV 87.7, MCH 29.3, MCHC 33.4, RDW 12.7, Plt Count 172, MPV 10.8 H, Neut % (Auto) 81.5 H, Lymph % (Auto) 10.1, Hartley % (Auto) 6.7, Eos % (Auto) 0.0 L, Baso % (Auto) 1.3, Neut # (Auto) 3.6, Lymph # (Auto) 0.5 L, Hartley # (Auto) 0.3, Eos # (Auto) 0.0, Baso # (Auto) 0.1, Total Counted 100, Neutrophils % (Manual) 88 H, Lymphocytes % (Manual) 9 L, Monocytes % (Manual) 3, Platelet Estimate Normal, RBC Morphology Normal, Sodium 133 L, Potassium 4.9, Chloride 99, Carbon Dioxide 27, Anion Gap 11.9, BUN 19, Creatinine 1.50 H, Estimated GFR 48 L, Est GFR ( Amer) 58 L, Glucose 137 H, Calcium 10.8 H, Magnesium 1.7, Total Bilirubin 1.2, AST 79 H, ALT 64, Alkaline Phosphatase 43, Troponin I < 0.01, Total Protein 8.8 H D, Albumin 4.8, Globulin 4.0 H, Albumin/Globulin Ratio 1.2, Lipase 143 04/30/25 06:11: Urine Color Yellow, Urine Appearance Clear, Urine pH 5.5, Ur Specific [place] 1.020, Urine Protein Negative, Urine Glucose (UA) 3+, Urine Ketones Trace, Urine Blood Negative, Urine Nitrate Negative, Urine Bilirubin Negative, Urine Urobilinogen 0.2, Ur Leukocyte Esterase Negative, Urine RBC None, Urine WBC Occasional, Ur Squamous Epith Cells None, Urine Bacteria None 04/30/25 07:00: SARS-CoV-2 (PCR) Not detected, Influenza A Untype (PCR) Not detected, Influenza Type B (PCR) Not detected 04/30/25 07:48: Troponin I < 0.01 04/30/25 05:26 04/30/25 05:26 Orders (Tests/Meds): ED MEDICATIONS Discontinued Medications Generic Name Dose Route Start Last Admin Trade Name Freq PRN Reason Stop Dose Admin Acetaminophen 1,000 mg 04/30/25 05:33 04/30/25 06:00 Acetaminophen 500mg Tab PO 04/30/25 05:34 1,000 mg ONCE ONE Administration Amiodarone HCl 400 mg 04/30/25 06:24 04/30/25 06:40 Amiodarone 200mg Tablet PO 04/30/25 06:25 400 mg ONCE ONE Administration Sodium Chloride 1,000 mls @ 999 mls/hr 04/30/25 05:45 04/30/25 06:00 Sod Chlor 0.9% 1000ml Bag IV 04/30/25 06:45 999 mls/hr .Q1H1M BA Administration Metoprolol Succinate 100 mg 04/30/25 06:26 04/30/25 06:40 Metoprolol Succinate Xl 100mg Tablet PO 04/30/25 06:27 100 mg ONCE ONE Administration Metoprolol Tartrate 5 mg 04/30/25 05:45 04/30/25 06:00 Metoprolol Tartrate 5mg/5ml Vial IV 04/30/25 05:46 5 mg ONCE ONE Administration Metoprolol Tartrate 5 mg 04/30/25 06:05 04/30/25 06:05 Metoprolol Tartrate 5mg/5ml Vial IV 04/30/25 06:06 5 mg ONCE ONE Administration Metoprolol Tartrate 5 mg 04/30/25 06:15 04/30/25 06:15 Metoprolol Tartrate 5mg/5ml Vial IV 04/30/25 06:16 5 mg ONCE ONE Administration Ondansetron HCl 4 mg 04/30/25 05:33 04/30/25 07:59 Ondansetron 4mg/2ml Vial IV 04/30/25 05:34 4 mg ONCE ONE Administration ORDERS Category Date Time Status Cardiology Consult [Consult to Cardiology] [CONS] Cons 04/30/25 08:01 Active Routine CXR --portable [XR chest portable] Stat Exams 04/30/25 05:33 Taken Complete Blood Count Auto Diff Routine Lab 04/30/25 05:26 Completed Comprehensive Metabolic Panel Routine Lab 04/30/25 05:26 Completed Lipase Routine Lab 04/30/25 05:26 Completed Magnesium Routine Lab 04/30/25 05:26 Completed Rapid PCR Covid and Flu A/B Stat Lab 04/30/25 07:00 Completed Troponin I Q3H Lab 04/30/25 07:48 Completed Troponin I Routine Lab 04/30/25 05:26 Completed Urinalysis and Microscopic Routine Lab 04/30/25 06:11 Completed ECG Data Tracing #1: I reviewed this ECG and interpreted as documented below: A-fib with ventricular rate of 128, some minimal ST depression in the precordial leads. ECG initial impression date: 04/30/25 ECG initial impression time: 05:24 Tracing #2: I reviewed this ECG and interpreted as documented below: A-fib with ventricular rate of 116. Mild ST depressions appear improved. ECG initial impression date: 04/30/25 ECG initial impression time: 05:48 HEART Score History (anamnesis): Slightly suspicious ECG: Non-specific disturbance Age: 45-65 years Risk factors: 3 or more risk factors Troponin: </= normal limit HEART Score: 4 Medical Decision Narrative: 59-year-old male with history of A-fib RVR, on home amiodarone and metoprolol after recent admission for heart cath and cardioversion presents for 1 day of fever to 101 at home, nausea without chest pain or abdominal pain, little bit of cough and congestion. History was obtained via interactive discussion with patient, chart review. On arrival, patient is afebrile, in A-fib with intermittent RVR between 100 and 130, normotensive, moving all extremities spontaneously. Full physical exam performed and significant for clear lungs bilaterally, no abdominal tenderness Differential includes but is not limited to URI, UTI, intra-abdominal infection, pneumonia, A-fib, electrolyte derangement, FILIBERTO, ACS. Patient was given IV metoprolol 5 mg x 3, home metoprolol succinate and amiodarone p.o. for symptomatic management and correction of underlying abnormalities. Workup initiated including CBC CMP lipase mag troponin EKG chest x-ray viral panel urinalysis. On re-evaluation, patient remains in A-fib, rate mildly improved but still over 100 to the time. Laboratory workup independently interpreted by me and significant for polycythemia similar to prior, no significant electrolyte derangement, negative initial troponin. Imaging independently interpreted by me and significant for poor inspiratory effort, no obvious infiltrate. See radiology read for full review of final results. EKG independently interpreted by me and significant for A-fib RVR. Patient placed in ED observation status for she will troponins and to assess effectiveness of meds for A-fib RVR. <Arden Smith MD - Last Filed: 04/30/25 08:47> Vital Signs: 04/30/25 05:27 04/30/25 05:37 04/30/25 05:52 Temperature 98.9 F Temperature Source Oral Pulse Rate 99 H 93 H Pulse Rate [Left] 115 H Respiratory Rate 14 24 17 Blood Pressure 122/84 130/83 Blood Pressure [Left Arm] 124/92 H Blood Pressure Mean Blood Pressure Mean [Left Arm] 102 Blood Pressure Source [Left Arm] Automatic Cuff Blood Pressure Position [Left Arm] Sitting 02 Sat by Pulse Oximetry 96 95 95 Oxygen Delivery Method Room Air 04/30/25 06:00 04/30/25 06:13 04/30/25 06:30 Temperature Temperature Source Pulse Rate 104 H 118 H 97 H Pulse Rate [Left] Respiratory Rate 22 24 17 Blood Pressure 127/78 101/69 L 101/64 L Blood Pressure [Left Arm] Blood Pressure Mean 79 69 Blood Pressure Mean [Left Arm] Blood Pressure Source [Left Arm] Blood Pressure Position [Left Arm] 02 Sat by Pulse Oximetry 96 95 97 Oxygen Delivery Method 04/30/25 07:01 04/30/25 07:30 04/30/25 08:00 Temperature Temperature Source Pulse Rate 95 H 118 H 118 H Pulse Rate [Left] Respiratory Rate 17 17 17 Blood Pressure 104/53 L 100/74 L 107/79 L Blood Pressure [Left Arm] Blood Pressure Mean 77 85 Blood Pressure Mean [Left Arm] Blood Pressure Source [Left Arm] Blood Pressure Position [Left Arm] 02 Sat by Pulse Oximetry 94 L 96 96 Oxygen Delivery Method Lab Data Lab Results 04/30/25 05:26: WBC 4.5 L, RBC 6.56 H, Hgb 19.1 H, Hct 57.5 H, MCV 87.7, MCH 29.3, MCHC 33.4, RDW 12.7, Plt Count 172, MPV 10.8 H, Neut % (Auto) 81.5 H, Lymph % (Auto) 10.1, [place] % (Auto) 6.7, Eos % (Auto) 0.0 L, Baso % (Auto) 1.3, Neut # (Auto) 3.6, Lymph # (Auto) 0.5 L, [place] # (Auto) 0.3, Eos # (Auto) 0.0, Baso # (Auto) 0.1, Total Counted 100, Neutrophils % (Manual) 88 H, Lymphocytes % (Manual) 9 L, Monocytes % (Manual) 3, Platelet Estimate Normal, RBC Morphology Normal, Sodium 133 L, Potassium 4.9, Chloride 99, Carbon Dioxide 27, Anion Gap 11.9, BUN 19, Creatinine 1.50 H, Estimated GFR 48 L, Est GFR ( Amer) 58 L, Glucose 137 H, Calcium 10.8 H, Magnesium 1.7, Total Bilirubin 1.2, AST 79 H, ALT 64, Alkaline Phosphatase 43, Troponin I < 0.01, Total Protein 8.8 H D, Albumin 4.8, Globulin 4.0 H, Albumin/Globulin Ratio 1.2, Lipase 143 04/30/25 06:11: Urine Color Yellow, Urine Appearance Clear, Urine pH 5.5, Ur Specific [place] 1.020, Urine Protein Negative, Urine Glucose (UA) 3+, Urine Ketones Trace, Urine Blood Negative, Urine Nitrate Negative, Urine Bilirubin Negative, Urine Urobilinogen 0.2, Ur Leukocyte Esterase Negative, Urine RBC None, Urine WBC Occasional, Ur Squamous Epith Cells None, Urine Bacteria None 04/30/25 07:00: SARS-CoV-2 (PCR) Not detected, Influenza A Untype (PCR) Not detected, Influenza Type B (PCR) Not detected 04/30/25 07:48: Troponin I < 0.01 Orders (Tests/Meds): ED MEDICATIONS Discontinued Medications Generic Name Dose Route Start Last Admin Trade Name Freq PRN Reason Stop Dose Admin Acetaminophen 1,000 mg 04/30/25 05:33 04/30/25 06:00 Acetaminophen 500mg Tab PO 04/30/25 05:34 1,000 mg ONCE ONE Administration Amiodarone HCl 400 mg 04/30/25 06:24 04/30/25 06:40 Amiodarone 200mg Tablet PO 04/30/25 06:25 400 mg ONCE ONE Administration Sodium Chloride 1,000 mls @ 999 mls/hr 04/30/25 05:45 04/30/25 06:00 Sod Chlor 0.9% 1000ml Bag IV 04/30/25 06:45 999 mls/hr .Q1H1M BA Administration Metoprolol Succinate 100 mg 04/30/25 06:26 04/30/25 06:40 Metoprolol Succinate Xl 100mg Tablet PO 04/30/25 06:27 100 mg ONCE ONE Administration Metoprolol Tartrate 5 mg 04/30/25 05:45 04/30/25 06:00 Metoprolol Tartrate 5mg/5ml Vial IV 04/30/25 05:46 5 mg ONCE ONE Administration Metoprolol Tartrate 5 mg 04/30/25 06:05 04/30/25 06:05 Metoprolol Tartrate 5mg/5ml Vial IV 04/30/25 06:06 5 mg ONCE ONE Administration Metoprolol Tartrate 5 mg 04/30/25 06:15 04/30/25 06:15 Metoprolol Tartrate 5mg/5ml Vial IV 04/30/25 06:16 5 mg ONCE ONE Administration Ondansetron HCl 4 mg 04/30/25 05:33 04/30/25 07:59 Ondansetron 4mg/2ml Vial IV 04/30/25 05:34 4 mg ONCE ONE Administration ORDERS Category Date Time Status Cardiology Consult [Consult to Cardiology] [CONS] Cons 04/30/25 08:01 Active Routine CXR --portable [XR chest portable] Stat Exams 04/30/25 05:33 Taken Complete Blood Count Auto Diff Routine Lab 04/30/25 05:26 Completed Comprehensive Metabolic Panel Routine Lab 04/30/25 05:26 Completed Lipase Routine Lab 04/30/25 05:26 Completed Magnesium Routine Lab 04/30/25 05:26 Completed Rapid PCR Covid and Flu A/B Stat Lab 04/30/25 07:00 Completed Troponin I Q3H Lab 04/30/25 07:48 Completed Troponin I Routine Lab 04/30/25 05:26 Completed Urinalysis and Microscopic Routine Lab 04/30/25 06:11 Completed HEART Score HEART Score: 4 Medical Decision Narrative: 59-year-old male with history of A-fib RVR, on home amiodarone and metoprolol after recent admission for heart cath and cardioversion presents for 1 day of fever to 101 at home, nausea without chest pain or abdominal pain, little bit of cough and congestion. History was obtained via interactive discussion with patient, chart review. On arrival, patient is afebrile, in A-fib with intermittent RVR between 100 and 130, normotensive, moving all extremities spontaneously. Full physical exam performed and significant for clear lungs bilaterally, no abdominal tenderness Differential includes but is not limited to URI, UTI, intra-abdominal infection, pneumonia, A-fib, electrolyte derangement, FILIBERTO, ACS. Patient was given IV metoprolol 5 mg x 3, home metoprolol succinate and amiodarone p.o. for symptomatic management and correction of underlying abnormalities. Workup initiated including CBC CMP lipase mag troponin EKG chest x-ray viral panel urinalysis. On re-evaluation, patient remains in A-fib, rate mildly improved but still over 100 to the time. Laboratory workup independently interpreted by me and significant for polycythemia similar to prior, no significant electrolyte derangement, negative initial troponin. Imaging independently interpreted by me and significant for poor inspiratory effort, no obvious infiltrate. See radiology read for full review of final results. EKG independently interpreted by me and significant for A-fib RVR. Patient placed in ED observation status for she will troponins and to assess effectiveness of meds for A-fib RVR. 59-year-old male presenting with fever, nausea, general malaise. States that it largely started occurring yesterday, may have been going on or ramping up for couple of days. Fever of 101 ?F last night, 04/29. States that he does not feel like he is in A-fib, but can sometimes feel my heart rate, denying chest pain or syncope. Has been mildly short of breath, but has also had congestion and upper respiratory symptoms. No actual vomiting. Mostly concerned because he had a heart catheterization a few days prior to this and had abnormal findings (was not stented). Remained in A-fib, unsuccessful cardioversion, so started on amiodarone and metoprolol. Was following up outpatient, saw family doctor and cardiology yesterday, 04/29, at that time, did not appear to be in atrial fibrillation, so A-fib must of developed some time between then and now. Patient without complaints on my evaluation. States that he is actually feeling much better. Patient was given fluids and Tylenol as well as rate control medications. On my eval patient, patient heart rate anywhere between 100 and 120. Does not feel like his heart is racing. Independent interpretation of EKG, patient appears to be atrial fibrillation. Subtle ST changes, no evidence of elevation. On independent interpretation of workup, patient has nonactionable white count, mildly elevated hemoglobin and normal platelet count consistent with polycythemia versus mild hemoconcentration. Patient's kidney function also mildly decreased with creatinine 1.5. Initial troponin negative. Lipase negative, urinalysis without concern for UTI. Viral swab negative for COVID and flu. I consulted cardiology formally, spoke to Elder around 8:15 AM. Stated that patient okay for home-going with outpatient cardiology follow-up as long as he looks and feels well. Patient was placed in observation beginning at 0700 in order to rule out evolving MA with delta troponins and determine need for admission versus home-going. The patient was provided serial exams, cardiac monitoring while awaiting results. Independent interpretation of results demonstrated negative delta troponin. On reevaluation, patient states he is actually feeling pretty well. Agreeable to home-going. Manual blood pressure 110/60, heart rate remains 100 and 110 even when up and ambulating. At this time, I feel patient is appropriate for discharge and close outpatient follow-up. Total observation time 2 hours. Because patient at baseline without signs or symptoms of clinical decompensation, deemed appropriate for discharge. Results were relayed to patient who voiced understanding and were agreeable to outpatient management and follow up. I discussed my clinical impression with patient and answered all questions. At this time, the evidence for any other entities in the differential is insufficient to warrant any further testing or ED observation. This was explained as well. Advisory was given that persistent or worsening symptoms require further evaluation. I confirmed the understanding of this discussion. Procedures <Dixon Prieto MD - Last Filed: 04/30/25 07:12> Risk/Benefits of Procedure(s) Were Explained: Yes Critical Care <Dixon Prieto MD - Last Filed: 04/30/25 07:12> Critical Care Time Critical Care Time: No
--- NOTE | 2025-04-30 05:33 | XR_ITS ---
FINAL REPORT CLINICAL HISTORY: fever COMPARISON: None FINDINGS: The heart size is mildly enlarged. The mediastinum is normal. The lungs are underinflated. Chronic changes are noted at the lung bases. There is no focal infiltrate or edema. There are no pleural effusions. There is no pneumothorax. There is no osseous abnormality. IMPRESSION: No acute cardiopulmonary process Reviewed, Interpreted and Dictated by Rich Chi MD Transcribed by Mirna Scott Authenticated and [facility]
--- NOTE | 2025-04-30 05:48 | ECG_ITS ---
APPROVED REPORT Exam: Resting ECG HR:116 bpm ECG Measurements Heart Rate 116 AXES QRSd 94 QRS 162 QT 192 T 0 QTc 261 Conclusion ATRIAL FIBRILLATION WITH RAPID VENTRICULAR RESPONSE PATTERN CONSISTENT WITH PULMONARY DISEASE INCOMPLETE RIGHT BUNDLE BRANCH BLOCK [90+ ms QRS DURATION, TERMINAL R IN V1/V2, 40+ ms S IN I/aVL/V4/V5/V6] RIGHT VENTRICULAR HYPERTROPHY [SOME/ALL OF: PROMINENT R IN V1, LATE TRANSITION, RAD, ADRIANA, SSS] MODERATE ST DEPRESSION [0.05+ mV ST DEPRESSION] ABNORMAL ECG UNCONFIRMED REPORT Electronically signed by : COLT TABARES, 05/01/2025 06:50:38
[2025-04-30] MEDS: ACETAMINOPHEN 500MG TAB 1000 MG PO (06:00)
[2025-04-30] MEDS: 0.9 % SODIUM CHLORIDE 1000ML 1,000 ML 999 ML IV (06:00)
[2025-04-30] MEDS: METOPROLOL TARTRATE 5MG/5ML VIAL 5 MG IV ×3 (06:00→06:15)
[2025-04-30 06:38] LABS: Basophils # 0.1 K/mm3 (0-0.2); Basophils % 1.3 % (0.1-2.0); Hematocrit 57.5 % (42.0-52.0); Immature Granulocytes # 0.02 10^3uL; Immature Granulocytes % 0.4 %; Lymphocytes # 0.5 K/mm3 (0.7-4.5); Lymphocytes % 10.1 % (10-50); Mean Corpuscular HGB Conc 33.4 g/dL (31.8-35.4); Mean Corpuscular Hemoglobin 29.3 pg (27.0-31.2); Mean Corpuscular Volume 87.7 fl (80-94); Mean Platelet Volume 10.8 fl (7.4-10.4); Monocytes # 0.3 K/mm3 (0.1-1.0); Monocytes % 6.7 % (1.7-9.3); Neutrophils # 3.6 K/mm3 (1.8-7.8); Neutrophils % 81.5 % (37.0-80.0); Nucleated Red Blood Cells # 0 10^3/uL; Nucleated Red Blood Cells % 0 %; Platelet Count 172 K/mm3 (142-424); Red Blood Count 6.56 M/mm3 (4.60-6.20); Red Cell Distribution Width 12.7 % (11.5-17.5); Red Cell Distribution Width-SD 40.5 fL; White Blood Count 4.5 K/mm3 (4.8-10.8)
[2025-04-30 06:40] LABS: Appearance,Urine CLEAR (Clear); Bilirubin,Urine Negative (Negative); Blood, Urine Negative (Negative); Color,Urine YELLOW (Yellow); Glucose,Urine (UA) 3+ (Negative); Ketones,Urine TRACE (Negative); Leukocyte Esterase,Urine Negative (Negative); Microscopic, Urine URINE MICROSCOPIC (MICROSCOPIC); Nitrate,Urine Negative (Negative); PH,Urine 5.5 (5.0-8.5); Protein,Urine Negative (Negative); Urobilinogen,Urine 0.2 EU/dl (0.2)
[2025-04-30 06:40] LABS: Albumin Level 4.8 g/dl (3.5-5.0); Chloride 99 mmol/L (98-107); Potassium 4.9 mmoL/L (3.5-5.1); Sodium 133 mmol/L (136-145)
[2025-04-30] MEDS: METOPROLOL SUCCINATE XL 100MG TABLET 100 MG PO (06:40)
[2025-04-30] MEDS: AMIODARONE 200MG TABLET 400 MG PO (06:40)
[2025-04-30 06:41] LABS: MANUAL DIFFERENTIAL MANUAL DIFFERENTIAL (MANUAL DIFF)
[2025-04-30 06:42] LABS: Blood Urea Nitrogen 19 mg/dl (9-20); Estimated Glomerular Filt Rate 48 ml/min (>60); GFR (African American) 58 ML/MIN (>60)
[2025-04-30 06:43] LABS: Alanine Aminotransferase 64 U/L (12-78); Albumin/Globulin Ratio 1.2 (1.1-1.8); Alkaline Phosphatase 43 U/L (38-126); Anion Gap 11.9 mEq/L (5-15); Aspartate Amino Transferase 79 U/L (17-59); Bilirubin,Total 1.2 mg/dl (0.2-1.3); Calcium 10.8 mg/dl (8.4-10.2); Carbon Dioxide 27 mmol/L (22.0-30.0); Glucose 137 mg/dl (74-100); Lipase 143 U/L (23-300); Magnesium 1.7 mg/dl (1.6-2.3); Total Protein,Serum 8.8 g/dl (6.3-8.2)
[2025-04-30 06:50] LABS: Hemoglobin 19.1 g/dL (14.1-18.0)
[2025-04-30 07:03] LABS: Troponin I < 0.01 ng/ml (0.00-0.034)
[2025-04-30 07:10] LABS: WBC,Urine Occasional #/hpf (0-3)
[2025-04-30 07:37] LABS: Coronavirus 19, PCR Not Detected (NotDetected); Influenza A, PCR Not Detected (NotDetected); Influenza B, PCR Not Detected (NotDetected)
--- OUTSIDE RECORDS SUMMARY | 2025-04-30 07:37 | XMS_ITS | Clinical Summary ---
Author Organization [facility] Address [address] [place] [address] Phone [email or web address] Providers Care Project Finance Analyst Name Role Phone Unavailable Primary Care Provider Unavailabl e Allergies Active Allergy Reactions Criticality Noted Date Comments Penicillins 08/09/2021 unknown Medications atenolol (TENORMIN) 50 MG tablet 06/20/2021 Active Choline Fenofibrate (Fenofibric Acid) 135 MG capsule delayed-release 08/07/2021 Act mt glimepiride (AMARYL) 4 MG tablet Take 4 mg by mouth 2 (two) times a day. for 7 days 06/27/2021 Active lisinopril (ZESTRIL) 10 MG tablet 06/20/2021 Active metFORMIN (GLUCOPHAGE) 500 MG tablet 06/20/2021 Active Rybelsus 7 MG tablet 07/05/2021 Active aspirin (ST KAITLIN) 81 MG EC tablet Take 81 mg by mouth 1 (one) time each day. 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 Gender Identity Not on file Sexual Orientation Not on file Plan of Treatment Health Maintenance Due Date Last Done Comments Dental Cleaning/Exam 1967 HIV Screening 1967 Hepatitis C Screening 1967 Annual Preventive Exam 1985 Hep B Infection Screening - Triple Screen 1985 Hepatitis B Immunization (1 of 3 - 19+ 3-dose series) 1986 Tetanus Diphtheria and Pertu ssis Immunization (1 - Tdap) 1986 Colorectal Cancer Screening 1997 Zoster Immunization (1 of 2) 2017 Covid-19 Immunization (1 - 2 024-25 season) 2024 Influenza Immunization (Seas on Ended) 2025 HIB Immunization Aged Out No longer e ligible based on patient's age to complete this topic HPV Immunization Aged Out No longer e ligible based on patient's age to complete this topic Hepatitis A Immunization Aged Out No longer eligible based on patient's age to complete this topic Pneumococcal: Ped (0 to 5 Yr s) and At-Risk Member (6 to 64 Yrs) Aged Out No longer e ligible based on patient's age to complete this topic Polio Immunization Aged Out No longer eligible based on patient's age to complete this topic Insurance OPT OUT NO COPAY NB
[2025-04-30] MEDS: ONDANSETRON 4MG/2ML VIAL 4 MG IV (07:59)
[2025-04-30 08:04] LABS: Lymphocytes % 9 % (10-50); Monocytes % 3 % (2-9); Neutrophils % 88 % (42-76); Total Cells Counted 100
[2025-04-30 08:05] LABS: Platelet Estimate Normal; RBC Morphology Normal
[2025-04-30 08:15] LABS: Troponin I < 0.01 ng/ml (0.00-0.034)
--- NOTE | 2025-04-30 08:37 | PC.NURSE ---
Nurse Alex walked pt down the [place] and back and his HR was 118
== END 2025-04-30 09:07 | disposition home or self-care (01) ==
PROVIDERS: Emergency Medicine; Emergency Provider Emergency Medicine; PCP Internal Medicine
DX: I48.91 Unspecified atrial fibrillation (principal); R50.9 Fever, unspecified; R07.0 Pain in throat; I10 Essential (primary) hypertension; K21.9 Gastro-esophageal reflux disease without esophagitis; E11.9 Type 2 diabetes mellitus without complications
CPT/HCPCS: 71045; 80053; 81001; 83690; 83735; 84484; 85007; 85025; 85027; 87636; 93005; 96361; 96374; 96375; 96376; 99285; J2405; J7030

== ENCOUNTER 2025-05-05 09:21 | Outpatient (CLI) | payer BC, SELFPAY ==
--- OUTSIDE RECORDS SUMMARY | 2025-05-01 17:30 | XMS_ITS | Encounter Summary ---
Author Organization [facility] Address [address] [place] [phone] Phone [email or web address] Care Team Providers Care Gospel Worker Name Role Phone Unavailable Primary Care Provider Unavailabl e Reason for Visit * Reason Comments Blood Pressure Check Encounter Details Date Type Department Care Team (Latest Contact Info) Description 05/01/2025 5:30 PM EDT Clinical Support [facility] [address] [place] [address] [place] [address] [place] [phone] History of high blood pressure (Primary Dx) Social History Tobacco Use Types Packs/Day Years [...] on file 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 Gender Identity Not on file Sexual Orientation Not on file documented as of this encounter Last Filed Vital Signs Vital Sign Reading Time Taken Comments Blood Pressure 149/103 05/01/2025 5:18 PM EDT Pulse 72 05/01/2025 5:18 PM EDT Temperature - - Respiratory Rate - - Oxygen Saturation - - Inhaled Oxygen Concentration - - Weight - - Height - - Body Mass Index - - documented in this encounter Patient Instructions * Patient Instructions* Barbara Faith RN - 05/01/2025 5:30 PM EDT RTC as needed for BP checks documented in this encounter Progress Notes * Barbara Faith RN - 05/01/2025 5:30 PM EDT Andreia Wood is a 59 y.o. male who presents for a blood pressure check. TM is asymptomatic at this time. TM denies LH/D, chest pain, SOA, palpitations. he does have recommendations from an outside physician to have blood pressure checked. Vitals: 05/01/25 1718 BP: (!) 149/103 Pulse: 72 TM returned to work. ICD-10-CM ICD-9-CM 1. History of high blood pressure Z86.79 V12.59 Barbara Faith RN documented in this encounter Plan of Treatment Not on file documented as of this encounter Visit Diagnoses Diagnosis History of high blood pressure- Primary documented in this encounter
--- OUTSIDE RECORDS SUMMARY | 2025-05-05 09:23 | XMS_ITS | Clinical Summary ---
Author Organization [facility] Address [address] [place] [phone] Phone [email or web address] Care Team Providers Care Web Services Architect Name Role Phone Unavailable Primary Care Provider [...] (one) time each day. 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 Gender Identity Not on file Sexual Orientation Not on file Last Filed Vital Signs Vital Sign Reading Time Taken Comments Blood Pressure 149/103 05/01/2025 5:18 PM EDT Pulse 72 05/01/2025 5:18 PM EDT Temperature - - Respiratory Rate - - Oxygen Saturation - - Inhaled Oxygen Concentration - - Weight - - Height - - Body Mass Index - - Plan of Treatment Health Maintenance Due Date Last Done Comments Dental Cleaning/Exam 1967 HIV Screening 1967 Hepatitis C Screening 1967 Annual Preventive Exam 1985 Hep B Infection Screening - Triple Screen 1985 Hepatitis B Immunization (1 of 3 - 19+ 3-dose series) 1986 Colorectal Cancer Screening 1997 Covid-19 Immunization ( - 2023- season) 2024 Tetanus Diphtheria and Pertussis Immunization (2 - Td or Tdap) 10/31/2034 10/31/2024 Pneumococcal: Ped (0 to 5 Yrs) and At-Risk Member (6 to 64 Yrs) Aged Out 09/05/2017 No longer eligible b ased on patient's age to complete this topic Zoster Immunization Completed 11/26/2023, 09/19/2023 Influenza Immunization Completed , 08/16/2017, 08/28/2016 HIB Immunization Aged Out No longer e [...]
--- NOTE | 2025-05-05 09:45 | CA_ITS ---
FINAL REPORT CLINICAL HISTORY: HTN,DM FINDINGS: Aorta velocity: 155 cm/sec Right kidney: 12.1 cm. No evidence of hydronephrosis. Right intrarenal RI: 0.64 Right renal artery velocity: 199 cm/sec. Right RAR (Renal artery-Aortic Ratio): 1.3 Left Kidney: 12.2 cm. No evidence of hydronephrosis. Left intrarenal RI: 0.73 Left renal artery velocity: 261 cm/sec. Left RAR (Renal Artery-Aortic Ratio): 1.7 IMPRESSION: Less than 60% renal artery stenosis bilaterally. CT angiogram or postcontrast MR angiogram would be more sensitive for evaluation of possible renal artery stenosis. Reviewed, Interpreted and Dictated by Rich Chi MD Transcribed by Charity Hankins Authenticated and [facility]
--- NOTE | 2025-05-05 10:30 | MR_ITS ---
APPROVED REPORT Paint Laboratory Technician: CLINICAL INDICATION Low-normal LV systolic function on TTE, evaluation for non-ischemic cardiomyopathy TECHNIQUE Image Acquisition: Cardiac magnetic resonance (CMR) was performed on Siemens Espree MRI 1.5T scanner. Software platform sequences were performed using the Siemens Conference Houndo MR B19 platform. A set of three-plane, low-resolution, large plaga-no-ahhu localizers were initially acquired. Then axial, coronal, sagittal TrueFISP, as well as axial HASTE images, were obtained. These were followed by gated TrueFISP breathold cinematic sequences obtained in the short axis with 8 mm slices and 2 mm gaps, 2-chamber (vertical long axis), 3-chamber, 4-chamber (horizontal long axis). A bolus of contrast was injected intravenously with first-pass sequences obtained in the short axis and four-chamber planes. After approximately 10 minutes, a TI metal caster sequence was performed to determine the optimal TI time. Using the optimized TI time, delayed contrast enhancement segmented inversion???recovery TurboFLASH sequences were obtained in the short axis, 2-chamber, 3-chamber, and 4-chamber projections. 2D-velocity phase mapping was performed. Functional parameters were calculated by offline analysis on an independent workstation (Synac[employer] Imaging Platform, [employer]). Contrast: ProHance??? (Gadoteridol) FINDINGS MORPHOLOGY AND FUNCTION Left ventricle: The left ventricle is normal in size. The indexed left ventricular end-diastolic volume (LVEDVi) is 73 ml/m2 (reference range 57-105 ml/m2 in males, 56-96 ml/m2 in females). Normal left ventricular systolic function is present. There is normal left ventricular wall thickness. There are no regional wall motion abnormalities noted. LVEF is calculated at 58.1% (reference range 57-77%). Right ventricle: The right ventricle is normal in size. The indexed right ventricular end-diastolic volume (RVEDVi) is 78 ml/m2 (reference range 61-121 ml/m2 in males, 48-112 ml/m2 in females). Normal right ventricular systolic function is present. RVEF is calculated at 54.4% (reference range 52-72% in males, 51-71% in females). Atria: The left atrium is mildly dilated. The maximum indexed left atrial volume is 47 ml/m2 (reference range 26-52 ml/m2 in males, 27-53 ml/m2 in females). The right atrium is normal in size. The maximum indexed right atrial volume is 33 ml/m2 (reference range 18-90 ml/m2). Aorta: The diameter of the aortic annulus is normal, measuring 29 mm (coronal view reference range 21-30 mm in males, 19-27 mm in females). The diameter of the aortic sinus is normal, measuring 35 mm (coronal view reference range 25-42 mm in males, 24-36 mm in females). The diameter of the sinotubular junction is normal, measuring 27 mm (coronal view reference range 18-32 mm in males, 18-28 mm in females). The diameters of the ascending and descending thoracic aorta are normal. Main pulmonary artery: The main pulmonary artery diameter is normal. Pericardium: The pericardial thickness is normal. The pericardial thickness measures 2.0 mm (normal < 4.0 mm). There is no pericardial effusion. VALVES The valvular morphologies in the visualized sequences appear normal. There is no significant valvular stenosis or regurgitation of the mitral, aortic, tricuspid, or pulmonic valve noted visually. Systolic anterior motion of the mitral valve is not visualized. Ratio of pulmonary to systemic flow, Qp:Qs ratio = 1.12 (normal < or = 1.2, hemodynamically significant shunt > 1.5), demonstrating no evidence of hemodynamically significant shunt. TISSUE CHARACTERIZATION Resting Perfusion: Normal myocardial blood flow at rest. No evidence of resting hypoperfusion. Myocardial Fibrosis and/or edema: Normal gadolinium kinetics are present. No evidence of late gadolinium enhancement is noted, consistent with absence of myocardial scarring, infarction, or necrosis. T2-weighted imaging demonstrates no evidence of myocardial edema or inflammation. OTHER No other significant findings are noted. However, this exam is focused on the cardiac structure and function. IMPRESSION Normal LV size with normal LV systolic function. LVEDVi= 73 ml/m2 and LVEF= 58.1%. Normal RV size with normal RV systolic function. RVEDVi= 78 ml/m2 and RVEF= 54.4%. Mild LA enlargement. No CMR evidence of myocardial scarring, infarction, or necrosis. No evidence of myocardial edema or inflammation. Perfusion analysis demonstrates normal blood flow at rest with no evidence of resting hypoperfusion. Ratio of pulmonary to systemic flow, Qp:Qs ratio = 1.12 (normal < or = 1.2, hemodynamically significant shunt > 1.5), demonstrating no evidence of hemodynamically significant shunt. Overall, this CMR demonstrates normal biventricular systolic function. No evidence of infiltrative or hypertrophic cardiomyopathy or any evidence of myocardial scarring or prior infarct. COMPARISON None CRITICAL RESULT None COMMUNICATION The above findings were relayed to the patient at the time of the routine outpatient cardiology follow-up visit, prior to dictation of this report. The findings of this cardiac MR were reviewed, reported, and signed by Job Horton MD (Wetlands Technician). Conclusion Electronically signed by : Ariana Horton MD 05/26/2025 13:10:51
--- NOTE | 2025-05-05 11:00 | US_ITS ---
FINAL REPORT TECHNIQUE: Ultrasound images of the kidneys and bladder were obtained. CLINICAL HISTORY: I42.8 - Other cardiomyopathies -- HTN FINDINGS: The right kidney measures 11.5 cm in length. It is normal in echogenicity. There is no hydronephrosis. The left kidney measures 12.6 cm in length. It is normal in echogenicity. There is no hydronephrosis. There is a 2.1 x 2.0 cm anechoic structure in the lower pole of the left kidney, consistent with benign cyst. IMPRESSION: Benign left renal cyst. Reviewed, Interpreted and Dictated by Rich Chi MD Transcribed by Charity Hankins Authenticated and [facility]
[2025-05-05] MEDS: SODIUM CHLORIDE 0.9% 10ML SYR (RAD ONLY) 10 ML IV (11:21)
[2025-05-05] MEDS: GADOTERIDOL INJ 20ML SYRINGE 20 ML IV (11:21)
[2025-05-05] MEDS: 0.9 % SODIUM CHLORIDE 50 ML VIAL 20 ML IV (11:21)
== END 2025-05-05 23:59 | disposition home or self-care (01) ==
LOC: RT 09:21
PROVIDERS: PCP Internal Medicine; Visit Provider Nurse Practitioner
DX: I70.1 Atherosclerosis of renal artery (principal); N28.1 Cyst of kidney, acquired; I11.9 Hypertensive heart disease without heart failure; I42.8 Other cardiomyopathies; E11.9 Type 2 diabetes mellitus without complications
CPT/HCPCS: 75561; 76770; 93976; A9576

== ENCOUNTER → 2025-05-11 09:04 | Outpatient (CLI) | payer BC, SELFPAY ==
--- OUTSIDE RECORDS SUMMARY | 2025-05-01 17:30 | XMS_ITS | Encounter Summary ---
Author Organization [facility] Address [address] [place] [phone] Phone [email or web address] Care Team Providers Care School Supervisor Name Role Phone Unavailable Primary Care Provider Unavailabl e Reason for Visit * Reason Comments Blood Pressure Check Encounter Details Date Type Department Care Team (Latest Contact Info) Description 05/01/2025 5:30 PM EDT Clinical Support [facility] [address] [place] [address] [place] [address] [place] [phone] History of high blood pressure (Primary [...] on file 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
--- OUTSIDE RECORDS SUMMARY | 2025-05-11 09:21 | XMS_ITS | Clinical Summary ---
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
== END ==
LOC: SL 09:04
PROVIDERS: PCP Nurse Practitioner; Visit Provider Nurse Practitioner
DX: G47.33 Obstructive sleep apnea (adult) (pediatric) (principal); I48.91 Unspecified atrial fibrillation; I48.92 Unspecified atrial flutter; G47.36 Sleep related hypoventilation in conditions classified elsewhere
CPT/HCPCS: G0399

== ENCOUNTER 2025-09-30 15:02 | Outpatient (CLI) | payer BC, SELFPAY ==
[2025-09-30 14:38] LABS: Hematocrit 52.0 % (42.0-52.0); Hemoglobin 16.7 g/dL (14.1-18.0); Immature Granulocytes % 0.5 %; Mean Corpuscular HGB Conc 32.1 g/dL (31.8-35.4); Mean Corpuscular Hemoglobin 30.2 pg (27.0-31.2); Mean Corpuscular Volume 94.0 fl (80-94); Nucleated Red Blood Cells % 0 %; Platelet Count 229 K/mm3 (142-424); Red Blood Count 5.53 M/mm3 (4.60-6.20); Red Cell Distribution Width-SD 44.2 fL; White Blood Count 4.3 K/mm3 (4.8-10.8)
--- OUTSIDE RECORDS SUMMARY | 2025-09-30 15:04 | XMS_ITS | Clinical Summary ---
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 Gender Identity Not on file Sexual Orientation [...] Health Maintenance Due Date Last Done Comments CT Colonography 1967 Colonoscopy 1967 Colorectal Cancer Screening Combo 1967 DNA Cologuard 1967 Dental Cleaning/Exam 1967 FIT or FOBT Test 1967 HIV Screening 1967 Hepatitis C Screening 1967 Sigmoidoscopy 1967 Annual Preventive Exam 1985 Hep B Infection Screening - Triple Screen 1985 Hepatitis B Immunization (1 of 3 - 19+ 3-dose series) 1986 Pneumococcal: 50+ Years (2 o f 2 - PCV) 09/05/2018 09/05/2017 Covid-19 Immunization (1 - season) 2025 Influenza Immunization (#1) 2025 11/0 04/2024, 08/16/2017, 08/28/2016 Tetanus Diphtheria and Pertussis Immunization (2 - Td or Tdap) 10/31/2034 10/31/2024 Pneumococcal Immunization Discontinued 09/05/2017 Zoster Immunization Completed 11/26/2023, 09/19/2023 HIB Immunization Aged Out No longer e [...]
[2025-09-30 15:43] LABS: Alanine Aminotransferase 50 U/L (12-78); Albumin Level 4.8 g/dl (3.5-5.0); Albumin/Globulin Ratio 1.7 (1.1-1.8); Alkaline Phosphatase 50 U/L (38-126); Anion Gap 11.9 mEq/L (5-15); Aspartate Amino Transferase 41 U/L (17-59); Bilirubin,Total 0.6 mg/dl (0.2-1.3); Blood Urea Nitrogen 27 mg/dl (9-20); Calcium 9.4 mg/dl (8.4-10.2); Carbon Dioxide 28 mmol/L (22.0-30.0); Chloride 101 mmol/L (98-107); Cholesterol 173 mg/dl (140-200); Creatinine,Serum 1.50 mg/dl (0.66-1.25); Estimated Glomerular Filt Rate 48 ml/min (>60); GFR (African American) 58 ML/MIN (>60); Globulin 2.9 g/dL (1.3-3.2); Glucose 69 mg/dl (74-100); HDL Cholesterol 50 mg/dl (40-60); Potassium 4.9 mmoL/L (3.5-5.1); Sodium 136 mmol/L (136-145); Total Protein,Serum 7.7 g/dl (6.3-8.2); Triglycerides 196 mg/dl (30-150)
[2025-09-30 19:37] LABS: Hemoglobin A1C 6.2 % (4.0-6.0)
== END 2025-09-30 23:59 | disposition home or self-care (01) ==
LOC: LAB.DROPOF 15:02
PROVIDERS: PCP Internal Medicine; Visit Provider Internal Medicine
DX: I25.10 Atherosclerotic heart disease of native coronary artery without angina pectoris (principal); I10 Essential (primary) hypertension; E78.5 Hyperlipidemia, unspecified; E11.42 Type 2 diabetes mellitus with diabetic polyneuropathy; E11.59 Type 2 diabetes mellitus with other circulatory complications; Z12.5 Encounter for screening for malignant neoplasm of prostate
CPT/HCPCS: 80053; 80061; 82043; 82570; 83036; 85025; G0103

== ENCOUNTER → 2025-11-03 20:23 | Outpatient (CLI) | payer BC, SELFPAY ==
--- OUTSIDE RECORDS SUMMARY | 2025-10-26 14:40 | XMS_ITS | Encounter Summary ---
Author Organization [facility] Address [address] [id number] Care Team Providers Care Meterman Name Role Phone Everton Jones MD Primary Care Provider Reason for Referral * Imaging (Routine) - Pending Review Specialty Diagnoses / Procedures Referred By Elio mendoza Referred To Contact Radiology Diagnoses Atrial fibrillation, unspecified type (CMS/HCC) Typical atrial flutter (CMS/HCC) Procedures CT Angio Cardiac Structure Morphology Castillo Grigsby MD [address] [place] [address] Phone: tel: fax: Referral ID Status Reason Start Date Expiration Date V isits Requested Visits Authorized [id number] Pending Review 10/26/2025 04/27/2027 1 1 Reason for Visit * Consultation (Routine) - Closed Specialty Diagnoses / Procedures Referred By Contbeka t Referred To Contact Cardiology Diagnoses Other persistent atrial fibrillation (CMS/HCC) Ngoc Friedman, TEST FIXTURE DESIGNER [address] [facility] [address] [facility] [address] [place] [address] Phone: tel: fax: Referral ID Status Reason Start Date Expiration Date V isits Requested Visits Authorized [id number] Closed Specialty Services Required 10/01/2025 04/02/2027 1 1 Encounter Details Date Type Department Care Team ([facility] st Contact Info) Description 10/26/2025 2:40 PM EST Office Visit [facility] [place] Zack [address] [place] [id number] Castillo Grigsby MD [address] [place] [address] Atrial fibrillation, unspecified type (CMS/HCC) (Primary Dx); Typical atrial flutter (CMS/HCC) Social History Tobacco Use Types Packs/Day Years Used Date Smoking Tobacco: Never Smokeless Tobacco: Never Tobacco Cessation:Counseling Given: Not Answered Alcohol Use Standard Drinks/Week Comments Yes 0 (1 standard drink = 0.6 oz pur e alcohol) PHQ-2 Answer Date Recorded Patient Health Questionnaire-2 Score 0 10/26/2025 PHQ-9 Answer Date Recorded Patient Health Questionnaire-9 Score 0 10/26/2025 AUDIT-C Answer Date Recorded Q1: How often do you have a drink containing alc ohol? Monthly or less 10/26/2025 Q2: How many drinks containi ng alcohol do you have on a typical day when you are drinking? 1 or 2 10/26/2025 Q3: How often do you have si x or more drinks on one occasion? Monthly 10/26/2025 Sex and Gender Information Value Date Recorded Sex Assigned at Not on file Legal Sex Male 7:16 AM EST Gender Identity Not on file Sexual Orientation Not on file documented as of this encounter Last Filed Vital Signs Vital Sign Reading Time Taken Comments Blood Pressure 134/74 10/26/2025 3:17 PM EST Pulse 65 10/26/2025 3:17 PM EST Temperature - - Respiratory Rate - - Oxygen Saturation 95% 10/26/2025 3:17 PM EST Inhaled Oxygen Concentration - - Weight 110 kg (243 lb 2.7 oz) 10/26/2025 3:17 PM EST Height 167.6 cm (5' 6 ) 10/26/2025 3:17 PM EST Body Mass Index 39.25 10/26/2025 3:17 PM EST documented in this encounter Functional Status * AUDIT-C Score Answer Date of Assessment Author 3 10/26/2025 3:17 PM EST Mustapha Bejarano * Question Answer Date of Assessment Author Q1: How often do you have a drink containing alcohol? Monthly or less 10/26/2025 3:17 PM Lucas Xiong Q2: How many drinks containi ng alcohol do you have on a typical day when you are drinking? 1 or 2 10/26/2025 3:17 PM Barbara Xiong Q3: How often do you have si x or more drinks on one occasion? Monthly 10/26/2025 3:17 PM Barbara Obrien * Over the past 2 weeks, how often have you been bothered by any of the following problems? Question Answer Date of Assessment Author Little interest or pleasure in doing things Not at all 10/26/2025 3:14 PM Barbara Xiong Feeling down, depressed, or hopeless Not at all 06/2025 3:14 PM Barbara Xiong Patient Health Questionnaire-2 Score 0 06/2025 3:14 PM Barbara Xiong * Question Answer Date of Assessment Author Trouble falling or staying a sleep, or sleeping too much Not at all 10/26/2025 3:14 PM Barbara Xiong Feeling tired or having leo le energy Not at all 10/26/2025 3:14 PM Barbara Xiong Poor appetite or overeating Not at all 10/26/2025 3: 14 PM Barbara Xiong Feeling bad about yourself - or that you are a failure or have let yourself or your family down Not at all 10/26/2025 3:14 PM Barbara Xiong Trouble concentrating on thi ngs, such as reading the newspaper or watching television Not at all 10/26/2025 3:14 PM Barbara Xiong Moving or speaking so slowly that other people could have noticed. Or the opposite - being so fidgety or restless that you have been moving around a lot more than usual Not at all 10/26/2025 3:14 PM Barbara Xiong Thoughts that you would be b marla off or hurting yourself in some way Not at all 10/26/2025 3:14 PM Barbara Xiong Patient Health Questionnaire-9 Score 0 06/2025 3:14 PM EST Bejarano, Barbara * Calculated C-SSRS Risk Score (Lifetime/Recent) Answer Date of Assessment Author No Risk Indicated 10/26/2025 3:14 PM EST Barbara Bejarano * How difficult have these problems made it for you to do your work, take care of things at home, or get along with other people? Answer Date of Assessment Author Not difficult at all 10/26/2025 3:14 PM EST Barbara Champagne * Question Answer Date of Assessment Author 1. Wish to be (Past 1 Month) No 025 3:14 PM EST Barbara Bejarano 2. Non-Specific Active Suici yoav Thoughts (Past 1 Month) No 10/26/2025 3:14 PM EST Barbara Bejarano 6. Suicidal Behavior (Lifetime) No 3:14 PM EST Barbara Bejarano documented as of this encounter Miscellaneous Notes * Patient Instructions - Shruthi Salgado RN - 10/26/2025 2:40 PM EST Decrease Amiodarone to 200 mg daily Hold the Amiodarone, Eliquis and Metoprolol the morning of the procedure Stop the Amiodarone 3 months after the ablation * Progress Notes - Castillo Grigsby MD - 10/26/2025 2:40 PM EST Images from the original note were not included. CARDIAC ELECTROPHYSIOLOGY CONSULTATION NOTE October 26, 2025 Ngoc Friedman, TEST FIXTURE DESIGNER [address] [facility] [address] [place] [address] Re: Andreia Wood Jr. Date: 1965 Dear Everton Michaels MD Thank you for referring Andreia Wood Jr. to the [facility]. History of Present Illness The patient is a 60-year-old gentleman referred for an electrophysiology (EP) evaluation of paroxysmal/persistent atrial fibrillation and atrial flutter. He has a history of hypertension, diabetes, hyperlipidemia, cardiomyopathy with an ejection fraction (EF) of 50%, and global hypokinesis. He was previously evaluated for atrial fibrillation with rapid ventricular response (A-fib, RVR). Initial stress testing showed a large defect and reduced EF, but a heart catheterization revealed normal coronary arteries. His EF has since recovered post-cardioversion to sinus rhythm, as confirmed by MRI. He is asymptomatic and remains in sinus rhythm. The patient is currently on amiodarone and metoprolol. He was referred to EP for consideration of long-term rhythm management via different antiarrhythmics or ablation. He is compliant with Eliquis. His chart indicates that he is on Plavix, which he states was given due to a possible prior retinal artery occlusion, although he has never seen neurology for this. Cardiology recommended stopping Plavix now that he is on Eliquis. He also has a history of obstructive sleep apnea. There is no family history of A-fib. He is on amiodarone 200 mg twice daily, aspirin 81 mg daily, Eliquis 5 mg twice daily, and metoprolol succinate 100 mg once daily. He had previously undergone transesophageal echocardiogram (DARWIN) and cardioversion. Recently, he has been experiencing episodes of atrial fibrillation, which have not responded to electrical cardioversion even after 5 or 6 attempts. This led to his admission to the intensive care unit (ICU) under the care of Dr. Grigsby due to the elevated heart rate. His heart rate was recorded as 100 in the morning and decreased to 62 in the afternoon. He has been on amiodarone for approximately 3 to 4 months, which has successfully restored his heart rhythm to normal, although with occasional irregularities. He has not undergone any ablation procedures in the past. SOCIAL HISTORY Occupations: Works for a contractor, primarily doing paperwork and computer work. FAMILY HISTORY - Negative for atrial fibrillation Review of Systems: A complete 10 point review of systems was performed and is as per HPI. All other systems were reviewed and are negative. Past Medical History: Past Medical History[1] Past Surgical History: Surgical History[2] Current Medications: Current Medications[3] Allergies: Allergies[4] Family History: Family History[5] Social History: Social History Socioeconomic History Marital status: Single Spouse name: Not on file Number of children: Not on file Years of education: Not on file Highest education level: Not on file Occupational History Not on file Tobacco Use Smoking status: Never Smokeless tobacco: Never Vaping Use Vaping status: Never Used Substance and Sexual Activity Alcohol use: Yes Alcohol/week: 0.0 - 1.0 standard drinks of alcohol Drug use: Never Sexual activity: Not on file Other Topics Concern Not on file Social History Narrative Not on file Social Drivers of Health Food Insecurity: Not on file Alcohol Use: Not At Risk (10/26/2025) AUDIT-C Frequency of Alcohol Consumption: Monthly or less Average Number of Drinks: 1 or 2 Frequency of Binge Drinking: Monthly Housing Stability: Not on file Tobacco Use: Low Risk (10/26/2025) Patient History Smoking Tobacco Use: Never Smokeless Tobacco Use: Never Passive Exposure: Not on file Transportation Needs: Not on file Depression: Not At Risk (10/26/2025) PHQ-2 PHQ-2 Score: 0 Utilities: Not on file Stress: Not on file Intimate Partner Violence: Not on file Physical Activity: Not on file Social Connections: Not on file Financial Resource Strain: Not on file Physical Exam: VITAL SIGNS: Visit Vitals BP 134/74 (BP Location: Left arm, Patient Position: Sitting, BP Cuff Size: Adult) Pulse 65 Ht 1.676 m (5' 6 ) Wt 110 kg (243 lb 2.7 oz) SpO2 95% BMI 39.25 kg/m?? Smoking Status Never BSA 2.26 m?? GENERAL: Well appearing 60 y.o. male sitting comfortably on the examining table, in no apparent distress. speaking in full sentences without overt dyspnea HEENT:No xanthalasmas. conjunctiva pink; sclera anicteric; CV: PMI is discrete and not enlarged or displaced; there is a regular rate and rhythm; normal S1 with physiologically split S2; there are no murmurs, rubs, or gallops appreciated; PULM: normal chest wall excursion; and clear to auscultation bilaterally ABD: non-distended; soft EXT: warm; no edema, cyanosis, or clubbing SKIN: warm, dry, there are no venous stasis changes. No jaundice. NEURO: Alert and oriented x3. There are no gross motor deficits on basic screening neurologic exam PSYCH: Appropriate mood and affect. Physical Exam Heart: Heart rhythm is currently managed with medication. No significant blockages noted on heart catheterization. Mild left atrial enlargement observed. No evidence of myocardial scarring, infarction, or necrosis. Normal biventricular systolic function. Laboratory Data: No results found for: WBC , HGB , HCT , MCV , PLT Chemistry No results found for: NA , K , CL , CO2 , BUN , CREATININE , GLU No results found for: CALCIUM , ALKPHOS , AST , ALT , BILITOT Failed to redirect to the Timeline version of the [employer] SmartLink. Failed to redirect to the Timeline version of the [employer] SmartLink. No results found for: BNP No results found for: BNP No results found for: CHOL No results found for: HDL No results found for: LDLCALC No results found for: TRIG No results found for: HGBA1C Results Imaging - Cardiac MRI: LVEF 58.1%, mild LA enlargement, no CMR evidence of myocardial scarring, infarction,or necrosis, and overall CMR demonstrates normal biventricular systolic function. No evidence of infiltrative or hypertrophic cardiomyopathy or evidence of a myocardial scarring or prior infarct. Diagnostic Testing - Stress testing: Initially showed a large severe defect and reduced EF. Impression and Recommendations: In summary, Andreia Wood Jr. is a very pleasant 60 y.o. with Assessment & Plan 1. Paroxysmal atrial fibrillation: - Cardiac function has shown significant improvement, returning to normal levels. Would benefit from ablation (LA mildly dilated) (PVI +CTI) - Success rate of ablation is approximately 80 to 85 percent, indicating a residual risk of 15 to 20 percent for recurrence of atrial fibrillation or other arrhythmias within a year. - Comprehensive discussion held regarding the potential benefits and risks associated with ablationtherapy, including risks of bleeding, infection, injury to the nerve, artery, vein, heart structures, pericardial effusion, tamponade, heart attack, stroke, fast and slow heart rhythms, injury to kidneys, esophagus, nerve controlling the diaphragm, and risk of (<1%). - Procedure will be performed under general anesthesia, necessitating cessation of all medications on the day of the procedure. - Post-procedure, avoid heavy lifting >10 pounds for a week, but no other major activity restrictions anticipated. - Encouraged to maintain a healthy lifestyle, including weight loss, smoking cessation, and alcoholabstinence, to further reduce the risk of atrial fibrillation recurrence. - Plan includes PVI plus CTI Carto mapping [employer] PFA for the PVI plus RFA for the CTI under general anesthesia. - Amiodarone dosage reduced to 200 mg once daily, with the expectation to continue this regimen for3 months post-ablation before discontinuation. - CTA cardiac to be performed within a week of the procedure to rule out intracardiac thrombus. 2. Typical atrial flutter: - History of typical atrial flutter as indicated by previous EKGs. - Plan includes combined ablation procedure for both atrial fibrillation and atrial flutter. - Atrial flutter ablation will be performed using radiofrequency ablation (RFA). - Hold all medications on the day of the procedure and resume them post-procedure. - CTA cardiac to be performed within a week of the procedure to rule out intracardiac thrombus. I spent 45 minutes performing the following components of the encounter (on the day of the encounter): reviewing history, examining the patient, reviewing imaging and/or labs, independently interpreting echocardiogram, ECG and/or other imaging results, counseling the patient and family/caregiver, communicating with other health assisted living care manager and entering clinical information in the EHR as well as discussing the case with the resident/fellow. The patient is agreeable to the plan and all pertinent questions were answered. Castillo Grigsby MD [facility] Cardiac Pharmacist Intern, [facility] [place]. Mall Managerprints and drawings curator, Division of Cardiovascular Medicine, [facility]. [1] No past medical history on file. [2] No past surgical history on file. [3] Current Outpatient Medications Medication Sig Dispense Refill amiodarone (Pacerone) 200 MG tablet Take 2 tablets by mouth daily. aspirin 81 MG EC tablet Take 1 tablet by mouth daily. Choline Fenofibrate (Fenofibric Acid) 135 MG capsule delayed-release Take 135 mg by mouth daily. dapagliflozin (Farxiga) 10 MG tablet Take 1 tablet by mouth daily. Eliquis 5 MG tablet Take 1 tablet by mouth 2 times a day. glimepiride (Amaryl) 4 MG tablet Take 1 tablet by mouth 2 times a day. losartan (Cozaar) 100 MG tablet Take 1 tablet by mouth daily. metoprolol succinate XL (Toprol-XL) 100 MG 24 hr tablet Take 1 tablet by mouth daily. Rybelsus 14 MG tablet Take 14 mg by mouth daily before breakfast. zinc gluconate 50 MG tablet Take 1 tablet by mouth daily. No current facility-administered medications for this visit. [4] Allergies Allergen Reactions Penicillins Unknown - Patient states they do not know rxn details [5] No family history on file. documented in this encounter Plan of Treatment Scheduled Orders Name Type Priority Associated Diagnoses Orde r Schedule CT Angio Cardiac Structure Morphology Imaging Routine Atrial fibrillation, unspecified type (CMS/HCC) Typical atrial flutter (CMS/HCC) 1 Occurrences starting 10/26/2025 until 04/29/2027 Scheduled Procedures Name Priority Associated Diagnoses Date/Ti me ABLATION - ATRIAL FIBRILLATI ON (PVI) Atrial fibrillation, unspecified type (CMS/HCC) Typical atrial flutter (CMS/HCC) ABLATION A-FLUTTER Atrial fibrillation, unspecified type (CMS/HCC) Typical atrial flutter (CMS/HCC) documented as of this encounter Goals Goal Patient Goal Type Associated Problems Recent Progress Patient-Stated? Author Autogenerat ed Goal Care Plan Autogenerated Problem No Shruthi Salgado RN documented as of this encounter Procedures Procedure Name Priority Date/Time Associated Diagnosis Comments ECG ADULT Routine 10/26/2025 3:20 PM EST Atrial fibrillation, unspecified type (CMS/HCC) documented in this encounter Results * ECG Adult (Now - Performed in your clinic) (10/26/2025 3:20 PM EST) EKG DIAGNOSIS CLASS Abnormal MUSE ECG Ventricular Rate 64 BPM MUSE ECG Atrial Rate 64 BPM MUSE ECG IL Interval 196 ms MUSE ECG QRSD Interval 90 ms MUSE ECG QT Interval 450 ms MUSE ECG QTC Interval 464 ms MUSE ECG P [place] 3 degrees MUSE ECG R [place] 120 degrees MUSE ECG T Wave [place] 58 degrees MUSE ECG Diagnosis Normal sinus rhythm MUSE ECG Diagnosis Right axis deviation MUSE ECG Diagnosis Abnormal ECG MUSE ECG Diagnosis MUSE ECG Diagnosis Confirmed by Silverio Gandara ([id number]) on 10/26/2025 5:06:28 PM MUSE ECG 10/26/2025 3:20 PM EST 10/26/2025 5:06 PM EST Castillo Grigsby MD ECG ORDERABLES Final Result MUSE ECG documented in this encounter Visit Diagnoses Diagnosis Atrial fibrillation, unspecified type (CMS/HCC)- Primary Typical atrial flutter (CMS/HCC) documented in this encounter Additional Health Concerns Active Problems Noted Date Diagnosed Date Autogenerated Problem 10/26/2025 Assessment Noted Time PHQ-9 Depression Total Score: 0 10/26/20 25 3:14 PM EST A fall risk assessment has been complete d for the patient 10/26/2025 3:14 PM EST A Body Mass Index follow-up plan has been documented for the patient 10/26/2025 4:09 PM EST documented as of this encounter Care Teams Meterman Relationship Specialty Start Date End Date Everton Jones MD [address] [place] [address] [address] [place] [facility] PCP - General 10/01/25 documented as of this encounter
--- OUTSIDE RECORDS SUMMARY | 2025-11-03 20:26 | XMS_ITS | Encounter Summary ---
Author Organization [facility] Address [address] [place] [address] Care Team Providers Care Cloud Engagement Partner Name Role Phone Everton Jones MD Primary Care Provider [phone] Encounter Details Date Type Department Care Team (Late st Contact Info) Description 10/19/2025 Telephone [facility] [place] Zack [address] [place] [address] Eloisa Hernandez, RN [facility] - [facility] None Social History Tobacco Use Types Packs/Day Years Used Date Smoking Tobacco: Never Assessed Sex and Gender Information Value Date Recorded Sex Assigned at Not on file Legal Sex Male 7:16 AM EST Gender Identity Not on file Sexual Orientation Not on file documented as of this encounter Miscellaneous Notes * Telephone Encounter - Eloisa Hernandez RN - 10/19/2025 11:25 AM EST Patient Name: Andreia Wood Jr. :1965 Date:10/19/2025 Affiliate site: [facility] Referring Physician: Ngoc Friedman Education/ Information provided: This Nurse Liaison spoke with Andreia Wood JrGrabiel prior to an appointment on 10/26/2025. Explained nurse liaison services offered through [facility]. Discussed appointment necessity, and thathe would be seeing Dr. Grigsby in the EP Clinic. Patient verbalizes understanding. Patient denied any barriers to arriving to clinic visit. All questions answered. Provided patient with liaison contact information and encouraged patient to call with any questions, concerns or assistance needs. Will follow up with patient after appointment. Eloisa Hernandez, RN [facility] Nurse Liaison [phone] documented in this encounter Plan of Treatment Scheduled Procedures Name Priority Associated Diagnoses Date/Ti me ABLATION - ATRIAL FIBRILLATI ON (PVI) Atrial fibrillation, unspecified type (CMS/HCC) Typical atrial flutter (CMS/HCC) ABLATION A-FLUTTER Atrial fibrillation, unspecified type (CMS/HCC) Typical atrial flutter (CMS/HCC) documented as of this encounter Visit Diagnoses Not on filedocumented in this encounter Care Teams Cloud Engagement Partner Relationship Specialty Start Date End Date Everton Jones MD [address] [place] [address] [address] [place] [address] PCP - General 10/01/25 documented as of this encounter
--- OUTSIDE RECORDS SUMMARY | 2025-11-03 20:26 | XMS_ITS | Encounter Summary ---
Author Organization [facility] Address [address] [place] [address] Care Team Providers Care Keyboarding Teacher Name Role Phone Everton Jones MD Primary Care Provider [phone] Encounter Details Date Type Department Care Team (Latest Contact Info) Description 10/26/2025 Travel Social History Tobacco Use Types Packs/Day Years Used Date Smoking Tobacco: Never Smokeless Tobacco: Never Alcohol Use Standard Drinks/Week Comments Yes 0 [...] on file documented as of this encounter Functional Status * AUDIT-C Score Answer Date of Assessment Author 3 10/26/2025 3:17 PM Mustapha Xiong * Question Answer Date of Assessment [...] Health Questionnaire-9 Score 0 06/2025 3:14 PM Barbara Xiong * Calculated C-SSRS Risk Score (Lifetime/Recent) Answer Date of Assessment Author No Risk Indicated 10/26/2025 3:14 PM Barbara Xiong * How difficult have these problems made it for you to do your work, take care of things at home, or get along with other people? Answer Date of Assessment Author Not difficult at all 10/26/2025 3:14 PM Barbara Castro * Question Answer Date of Assessment Author 1. Wish to be (Past 1 Month) No 025 3:14 PM Barbara Xiong 2. Non-Specific Active Suici yoav Thoughts (Past 1 Month) No 10/26/2025 3:14 PM Barbara Xiong 6. Suicidal Behavior (Lifetime) No 3:14 PM Barbara Xiong documented as of this encounter Plan of Treatment Scheduled Procedures [...] Salgado RN documented as of this encounter Visit Diagnoses Not on filedocumented in this encounter Additional Health Concerns Active [...] documented as of this encounter Care Teams Keyboarding Teacher Relationship Specialty Start Date End Date Everton Jones MD [facility] [id number] [place], [place] [id number] PCP - General 10/01/25 documented as of this encounter
--- OUTSIDE RECORDS SUMMARY | 2025-11-03 20:26 | XMS_ITS | Clinical Summary ---
Author Organization [facility] Address [address] [place] [address] Care Team Providers Care Tiler'S Assistant Name Role Phone Everton Jones MD Primary Care Provider [phone] Allergies Active Allergy Reactions Criticality Noted Date Comments Penicillins Unknown - Patient st ates they do not know rxn details Low 10/26/2025 Medications dapagliflozin (Farxiga) 10 MG tablet Take 1 tablet by mouth daily. 5 Active Eliquis 5 MG tablet Take 1 tablet by mouth 2 times a day. 5 Active Choline Fenofibrate (Fenofibric Acid) 135 MG capsule delayed-release Take 135 mg by mouth daily. 5 Active glimepiride (Amaryl) 4 MG tablet Take 1 tablet by mouth 2 times a day. 5 Active losartan (Cozaar) 100 MG tablet Take 1 tablet by mouth daily. 5 Active metoprolol succinate XL (Toprol-XL) 100 MG 24 hr tablet Take 1 tablet by mouth daily. 5 Active Rybelsus 14 MG tablet Take 14 mg by mouth daily before breakfast. 5 Active aspirin 81 MG EC tablet Take 1 tablet by mouth daily. Active zinc gluconate 50 MG tablet Take 1 tablet by mouth daily. Active amiodarone (Pacerone) 200 MG tabletIndication s:Atrial fibrillation, unspecified type (CMS/HCC),Typica l atrial flutter (CMS/HCC) Take 1 tablet by mouth daily. 30 tablet 5 5 04/24/20 26 Active amiodarone (Pacerone) 200 MG tablet Take 2 tablets by mouth daily. 5 10/26/20 25 Discontinu ed(Dose adjustment ) Active Problems Problem Noted Date Diagnosed Date Atrial fibrillation 10/26/2025 Typical atrial flutter 10/26/2025 Encounters Date Type Department Care Team Description 10/27/2025 Telephone [facility] [address] [address] Eloisa Hernandez, RN 10/26/2025 2:40 PM EST Office Visit [facility] [address] [address] Castillo Grigsby MD Atrial fibrillation, unspecified type (CMS/HCC) (Primary Dx); Typical atrial flutter (CMS/HCC) 10/26/2025 Travel 10/19/2025 Telephone [facility] [address] [address] Eloisa Hernandez, RN from Last 3 Months Social History Tobacco [...] Mass Index 39.25 10/26/2025 3:17 PM EST Plan of Treatment Scheduled Procedures Name Priority Associated Diagnoses Date/Ti me ABLATION - ATRIAL FIBRILLATI ON (PVI) Atrial fibrillation, unspecified type (CMS/HCC) Typical atrial flutter (CMS/HCC) ABLATION A-FLUTTER Atrial fibrillation, unspecified type (CMS/HCC) Typical atrial flutter (CMS/HCC) Health Maintenance Due Date Last Done Comments [facility]-HIV Screening 1965 [facility]-Hepatitis C Screening 1965 [facility]-Infant/Child/Adol SDOH Screenings 1965 [facility]- SDOH Screenings 1985 [facility]-Adult SDOH Screenings 1985 [facility]-Hepatitis B Vaccines (1 of 3 - 19+ 3-dose series) 1986 CT Colonography 2012 Colonoscopy 2012 FIT-DNA 2012 FIT 2012 FOBT 2012 Sigmoidoscopy 2012 [facility]-Colorectal Cancer Screening 2012 [facility]-Pneumococcal Vaccine: 50+ Years (2 of 2 - PCV) 09/05/2018 09/05/2017 [id number] Vaccine ( season) 2025 [facility]-Depression Screening 10/26/2026 10/26/2025, 06/2025 [facility]-DTaP,Tdap,and Td Vaccines (2 - Td or Tdap) 10/31/2034 10/31/2024 [facility]-Zoster Vaccines Completed 11/26/2023, [facility]-Influenza Vaccine Completed 09/30/2025 , 09/24/2024, 08/16/2017, Additional history exists [facility]-Obesity Intervention Completed 10/26/2025, 06/2025 HPV Vaccines (No Doses Required) Completed [facility]-HIB Vaccines Aged Out No longer e ligible based on patient's age to complete this topic [facility]-Hepatitis A Vaccines Aged Out No longer eligible based on patient's age to complete this topic [facility]-IPV Vaccines Aged Out No longer e ligible based on patient's age to complete this topic [facility]-Rotavirus Vaccines Aged Out No lo nger eligible based on patient's age to complete this topic Goals Goal Patient Goal Type Associated Problems Recent Progress Patient-Stated? Author Autogenerat ed Goal Care Plan Autogenerated Problem No Shruthi Salgado RN Procedures Procedure Name Priority Date/Time Associated Diagnosis Comments ECG ADULT Routine 10/26/2025 3:20 PM EST Atrial fibrillation, unspecified type (CMS/HCC) from Last 3 Months Results * ECG Adult (Now - Performed in your clinic) (10/26/2025 3:20 PM EST) EKG DIAGNOSIS CLASS Abnormal MUSE ECG Ventricular Rate 64 BPM MUSE ECG Atrial Rate 64 BPM MUSE ECG IN Interval 196 ms MUSE ECG QRSD Interval 90 ms MUSE ECG QT Interval 450 ms MUSE ECG QTC Interval 464 ms MUSE ECG P Blanchard 3 degrees MUSE ECG R Blanchard 120 degrees MUSE ECG T Wave Blanchard 58 degrees MUSE ECG Diagnosis Normal sinus rhythm MUSE ECG Diagnosis Right axis deviation MUSE ECG Diagnosis Abnormal ECG MUSE ECG Diagnosis MUSE ECG Diagnosis Confirmed by Silverio Gandara ([id number]) on 10/26/2025 5:06:28 PM MUSE ECG 10/26/2025 3:20 PM EST 10/26/2025 5:06 PM EST us Castillo Grigsby MD ECG ORDERABLES Final Result MUSE ECG from Last 3 Months Additional Health Concerns Active Problems Noted Date Diagnosed Date Autogenerated Problem 10/26/2025 Insurance ANTH Care Teams Tiler'S Assistant Relationship Specialty Start Date End Date Everton Jones MD [address] [place] [address] [address] [place] [address] PCP - General 10/01/25
--- OUTSIDE RECORDS SUMMARY | 2025-11-03 20:26 | XMS_ITS | Encounter Summary ---
Author Organization [facility] Address [address] [place] [address] Care Team Providers Care Manager E Commerce Name Role Phone Everton Jones MD Primary Care Provider [phone] Encounter Details Date Type Department Care Team (Late st Contact Info) Description 10/27/2025 Telephone [facility] [address] [place] [address] Eloisa Hernandez, RN [facility] None Social History Tobacco Use Types [...] Telephone Encounter - Eloisa Hernandez RN - 10/27/2025 11:19 AM EST Patient Name:Andreia Wood Jr. : 1965 Date:10/27/2025 Affiliate Site: [facility] Referring Physician: WING Conde/ Seen: EP/ Dr. Grigsby Future scheduling/testing needs: This [facility] Nurse Liaison contacted Andreia Wood Jr. following their appointment on 10/26/2025. Explained Liaison services offered through the [facility]. Inquired about appointment details and patient denied any questions or concerns at this time. Informed patient that liaisons are always available should a need/concern arise. Plan of care relayed to Ngoc Valentine. Liaison contact information provided. Will follow up in to ensure continuum of care. Eloisa Hernandez RN [facility] Nurse Liaison [phone] documented in this encounter Plan of Treatment [...] documented as of this encounter Care Teams Manager E Commerce Relationship Specialty Start Date End Date Everton Jones MD [address] [place] [address] [address] [place] [address] PCP - General 10/01/25 documented as of this encounter
== END ==
LOC: SL 20:25
PROVIDERS: PCP Internal Medicine; Visit Provider Specialist
DX: G47.33 Obstructive sleep apnea (adult) (pediatric) (principal); G47.34 Idiopathic sleep related nonobstructive alveolar hypoventilation